=== PATIENT | male | born 1930 | race Caucasian/White ===

== ENCOUNTER 2019-08-22 09:57 | Inpatient (IN) ==
[2019-08-22] MEDS ORDERED: NS 1,000 ML IV ONE ×2 (10:24→13:26)
[2019-08-22] MEDS ORDERED: ZOFRAN IV ONE (10:26)
--- NOTE | 2019-08-22 10:42 | PROVIDER DOCUMENTATION ---
HPI-General Adult - General Chief Complaint: Syncope Stated Complaint: SYNCOPE Time Seen by Provider: 08/22/19 09:58 Source: patient, family Allergies/Adverse Reactions: Patient Allergies Allergy/AdvReac Type Severity Reaction Status Date / Time No Known Allergies Allergy Verified 06/29/19 11:55 Home Medications: Home Medication List Medication Instructions Recorded Confirmed Last Taken Type Allopurinol 100 mg PO QAM 06/29/19 08/22/19 07/03/19 08:00 History Cholecalciferol (Vitamin D3) 1 dose PO QHS 06/29/19 07/04/19 07/03/19 21:00 History [Vitamin D3] Cyanocobalamin (Vitamin B-12) 1,000 mcg PO QAM 06/29/19 08/22/19 07/03/19 08:00 History [B-12] Furosemide 40 mg PO QAM 06/29/19 08/22/19 07/03/19 08:00 History Lisinopril 5 mg PO QHS 06/29/19 08/22/19 07/03/19 21:00 History Pantoprazole [Protonix] 40 mg PO QAM 06/29/19 08/22/19 07/03/19 08:00 History Pravastatin Sodium 20 mg PO QHS 06/29/19 08/22/19 07/03/19 21:00 History Ranitidine HCl 300 mg PO QHS 06/29/19 08/22/19 07/03/19 21:00 History Spironolactone 25 mg PO QAM 06/29/19 07/04/19 07/03/19 08:00 History Sucralfate 1 gm PO BID 06/29/19 07/04/19 07/03/19 21:00 History Warfarin [Coumadin] 1 dose PO DIRECTED 06/29/19 07/04/19 Unknown History - History of Present Illness -Gen Adult Nature of Presenting Problems: Presents to the with family who states that he was coming over to have some blood work drawn and while he was over there he ended up getting very dizzy and almost passing out in the wheelchair. He did not fall and was sitting in the wheelchair throughout this episode. They states that last Thursday he was started on a new chemo injection by Dr Carpenter. On Thu he started feeling very weak. They deny any pain and fevers but state that he just appeared very pale and weak. He has required multiple transfusions and last time he was checked was a few eeks ago and he was in the 8s. They gave him an injection "that was supposed to replace the need for a transfusion". Patient appears weak and has little communication and most history was obtained by family. Review of Systems - Adult - REVIEW OF SYSTEMS - ADULT Constitutional: reports: see HPI Eyes: reports: no symptoms reported Ears, Nose, Mouth & Throat: reports: no symptoms reported Cardiovascular: reports: no symptoms reported Respiratory: reports: no symptoms reported Gastrointestinal: reports: no symptoms reported Genitourinary: reports: no symptoms reported Musculoskeletal: reports: no symptoms reported Integumentary: reports: no symptoms reported Neurological: reports: see HPI, syncope Psychiatric: reports: no symptoms reported Endocrine: reports: no symptoms reported Hematologic/Lymphatic: reports: see HPI, low blood count, transfusions Allergic/Immunologic: reports: no symptoms reported All Other Systems: Reviewed and Negative Past History - Adult - PAST MEDICAL HISTORY-ADULT Review of Records: reports: Old Records Reviewed Physical Exam-General - CONSTITUTIONAL General Appearance: alert, lethargic, other (appears weak) - EYES Eyes: PERRL/EOMI, pale conjunctivae - HEAD, EARS, NOSE, MOUTH & THROAT HENMT: normocephalic/atraumatic - NECK Neck: supple, normal inspection - RESPIRATORY Respiratory: chest non-tender, lungs clear, normal breath sounds, no respiratory distress, no accessory muscle use - CARDIOVASCULAR Cardiovascular: normal peripheral pulses, no murmur, tachycardia, irregularly irregular - GASTROINTESTINAL (ABDOMEN) Abdominal Exam: normal bowel sounds, non tender, soft - MUSCULOSKELETAL Back Exam: normal inspection Extremity: normal range of motion, no pedal edema - SKIN Integumentary: warm/dry, pallor - NEUROLOGIC Neurologic: grossly normal - PSYCHIATRIC Psych/Mental Status: normal mood/affect, oriented x 3 Progress - PLAN OF CARE/RESULTS Progress/Plan/Lab Results: Vital Signs - 8 hr 08/22/19 10:05 Temperature 97.4 F L Pulse Rate 106 H Respiratory Rate 24 Blood Pressure 101/59 O2 Sat by Pulse Oximetry 97 Laboratory Results - last 24 hr 08/22/19 10:25 POC Glucose 147 H Orders Category Date Time Status ED: Orthostatic Vital Signs (E DIRECTED Care 08/22/19 10:25 Active CHEST-PORTABLE [RAD] Stat Exams 08/22/19 10:[address] HEAD W/O CONTRAST [CT] Stat Exams 08/22/19 10:24 Ordered BLOOD CULTURE [BLDCUL] Stat Lab 08/22/19 10:24 Uncollected CBC WITH ELECTRONIC DIFF [HEME] Stat Lab 08/22/19 10:23 Uncollected COMPREHENSIVE METABOLIC PANEL [CHEM] Stat Lab 08/22/19 10:24 Uncollected LACTATE, PLASMA [CHEM] Stat Lab 08/22/19 10:24 Uncollected LIPASE [CHEM] Stat Lab 08/22/19 10:24 Uncollected PRO B-NATRIURETIC PEPTIDE Stat Lab 08/22/19 10:24 Uncollected PROTIME WITH INR [COAG] Stat Lab 08/22/19 10:24 Uncollected PTT [COAG] Stat Lab 08/22/19 10:24 Uncollected TROPONIN T Stat Lab 08/22/19 10:24 Uncollected TYPE & SCREEN [BBK] Stat Lab 08/22/19 10:24 Uncollected URINALYSIS W/POSS RFLX CULT [URINALYSIS] Stat Lab 08/22/19 10:24 Uncollected URINE DRUG SCREEN Stat Lab 08/22/19 10:24 Uncollected 0.9% Sodium Chloride Inj [Ns] 1,000 ml Med 08/22/19 10:24 Active IV 999 mls/hr Ondansetron [Zofran] Med 08/22/19 10:26 Discontinued 4 mg IV NOW ONE Patient spiked temp while in the ED. Unknown source. CXR negative, UA negative, flu negative. LA normal. Pancytopenic. Ordered PRBCs and platelets. Given 2L NS prior to transfusion to help with pressures. Patient started on Neutropenic fever precautions and started on Vanc and Cefepime. Cultures ordered. Spoke to HERBERTH Vogel for hospitalist who accepted patient for admission. Further orders to be placed by their team. Result Diagrams: 08/22/19 11:05 08/22/19 11:05 - EKG 1 Time of EKG reading by physician:: 10:15 EKG Read and Signed by:: Mónica Mcdonough EKG Interpretation (*Must complete 3 of following elements*): Abnormal Rate: 111 Rhythm: Afib Rewey: normal ST Wave: non-specific ST changes - XRAY 1 XRAY Study: Chest (EXAM: CHEST-PORTABLE INDICATION: near syncope, weakness, cancer pt TECHNIQUE: One view COMPARISON: None. FINDINGS: There is a right chest port with the tip projecting over the lower SVC in the expected position. The lungs are grossly clear. There is no discrete pleural fluid collection or pneumothorax. A pacemaker/defibrillator is in place. The cardiac silhouette is perhaps mildly prominent. Central vasculature is unremarkable. IMPRESSION: Mildly prominent cardiac silhouette. No definite acute pathology by plain rad iograph, otherwise. Electronically signed by Johan Waggoner 08/22/2019 10:47 AM) - CT/MRI 1 CT Study: Head (CT HEAD W/O CONTRAST - 08/22/2019 INDICATION: near syncope COMPARISON: None FINDINGS: There is advanced, patchy cerebral white matter lucency diffusely compatible with chronic microvascular ischemia. There are old lacunae in the right basal ganglia. No intracranial mass or hemorrhage. The skull is intact. The sinuses, mastoids, and middle ears are clear. IMPRESSION: Advanced chronic microvascular ischemia of the cerebral white matter. No acute process visible. This exam was performed using automated exposure control, adj ustment of mA or kV according to patient size, and/or use of iterative reconstruction technique Electronically signed by William Fulton 08/22/2019 12:53 PM) - CONSULTS/PCP/HOSPITALIST Notification #1 *Consult/PCP/Hospitalist*: HERBERTH Vogel salesperson fashion accessories for hospitalist Time Discussed: 15:36 Consult Disposition: Admit (Dr Hendricks) Departure - Departure Date of Disposition Decision: 08/22/19 Time of Disposition Decision: 15:35 DIAGNOSIS: Pancytopenia, Neutropenic fever, Near syncope, Hypotension Disposition: ADMITTED INPATIENT 09 Certified Medical Emergency: Emergent Condition: Critical - Critical Care Note This patient required my direct & personal management of CC.: Yes Total Time (mins): 75 Critical Care Statement: This patient required my direct personal management to treat or rule out processes, the absence of which, could potentiallly result in sudden, clinically significant life or limb threatening deterioration. Attestation - Physician/ BELLO Attestation Patient care was provided by Advanced Practice Provider:: No The physician spent face to face time with patient:: Yes Advanced Practice Provider documentation review:: Supervising physician onsite and consulted in the evaluation and care of this patient. The physician did have a face to face encounter with the patient. Sepsis: Tissue Perfusion Assmt - Physical Exam Assessment Date: 08/22/19 Time Assessment Initialized: 15:35 Vital Signs: Last Vital Signs Temp 101.6 F H 08/22/19 14:28 Pulse 99 H 08/22/19 14:31 Resp 27 H 08/22/19 14:31 BP 114/53 08/22/19 14:31 Pulse Ox 96 08/22/19 14:31 Height 5 ft 8 in Weight 63.503 kg Lung Sounds:: diminished Heart Sounds:: Irregular Capillary Refill Time: Less Than 2 Seconds Skin Exam:: pale, pallor, turgor absent - Impression Impression:: Tissue Perfusion Adequate
--- NOTE | 2019-08-22 10:49 | Diag Imaging Result Doc PS360 ---
EXAM: CHEST-PORTABLE INDICATION: near syncope, weakness, cancer pt TECHNIQUE: One view COMPARISON: None. FINDINGS: There is a right chest port with the tip projecting over the lower SVC in the expected position. The lungs are grossly clear. There is no discrete pleural fluid collection or pneumothorax. A pacemaker/defibrillator is in place. The cardiac silhouette is perhaps mildly prominent. Central vasculature is unremarkable. IMPRESSION: Mildly prominent cardiac silhouette. No definite acute pathology by plain radiograph, otherwise. Electronically signed by Johan Waggoner 08/22/2019 10:47 AM
[2019-08-22 11:43] LABS: INR 1.39; PROTIME 17.3 Seconds (11.0-16.0)
[2019-08-22 11:44] LABS: PTT 38.2 Seconds (22.3-41.8)
[2019-08-22 12:10] LABS: BASO# 0.01 X1000 (0.0-0.2); BASO% 2.7 % (0.0-0.8); EOS# 0.05 X1000 (0.0-0.7); EOS% 13.5 % (0.0-10.0); HEMATOCRIT 17.5 % (42.0-52.0); HEMOGLOBIN 5.3 g/dL (14.0-18.0); LYMPH# 0.25 X1000 (1.2-3.4); LYMPH% 67.6 % (20.5-51.1); MCH 29.1 PG (27-31); MCHC 30.3 g/dL (33-37); MCV 96.2 FL (81-99); MONO# 0.02 X1000 (0.11-0.59); MONO% 5.4 % (1.7-9.3); NEUT# 0.04 X1000 (1.4-6.5); NEUT% 10.8 % (42.2-75.2); PLT 9 X1000 (130-400); RBC 1.82 XMIL (4.7-6.1); RDW 20.4 % (11.5-14.5); WBC 0.37 X1000 (4.8-10.8)
[2019-08-22 12:47] LABS: ALB/GLOB RATIO 1.6; ALBUMIN 3.6 g/dL (3.5-5.0); CALCIUM 8.7 mg/dL (8.8-10.2); CREATININE 2.2 mg/dL (0.7-1.2); POTASSIUM 4.5 mmol/L (3.5-5.1); TOTAL BILIRUBIN 1.6 mg/dL (0.20-1.00); TOTAL PROTEIN 5.9 g/dL (6.3-8.3)
--- NOTE | 2019-08-22 12:55 | EKG Report ---
Test Performed on : 08/22/2019 10:14:16 AM Test Reason : SYNCOPE Blood Pressure : / mmHG Vent. Rate : 111 BPM Atrial Rate : 111 BPM P-R Int : 000 ms QRS Dur : 088 ms QT Int : 308 ms P-R-T Axes : 000 004 199 degrees QTc Int : 418 ms Atrial fibrillation. with rapid ventricular response. Possible Inferior infarct , age undetermined ST & T wave abnormality, consider lateral ischemia Abnormal ECG No previous ECGs available Unconfirmed Result
--- NOTE | 2019-08-22 12:56 | Diag Imaging Result Doc PS360 ---
CT HEAD W/O CONTRAST - 08/22/2019 INDICATION: near syncope COMPARISON: None FINDINGS: There is advanced, patchy cerebral white matter lucency diffusely compatible with chronic microvascular ischemia. There are old lacunae in the right basal ganglia. No intracranial mass or hemorrhage. The skull is intact. The sinuses, mastoids, and middle ears are clear. IMPRESSION: Advanced chronic microvascular ischemia of the cerebral white matter. No acute process visible. This exam was performed using automated exposure control, adjustment of mA or kV according to patient size, and/or use of iterative reconstruction technique Electronically signed by William Fulton 08/22/2019 12:53 PM
[2019-08-22 13:02] LABS: LYMPHS 65 % (21-51); SEGS 35 % (42-75)
[2019-08-22 13:03] LABS: ANISOCYTOSIS 2+; HYPOCHROM 2+; MICROCYTOSIS 2+
[2019-08-22 13:04] LABS: URINE SOURCE CLEAN CATCH
[2019-08-22 13:08] LABS: BILIRUBIN URINE NEGATIVE (NEGATIVE); BLOOD URINE NEGATIVE (NEGATIVE); COLOR STRAW; GLUCOSE URINE NEGATIVE (NEGATIVE); KETONE URINE NEGATIVE (NEGATIVE); LEUKOCYTES URINE NEGATIVE (NEGATIVE); NITRITE URINE NEGATIVE (NEGATIVE); PROTEIN URINE NEGATIVE (NEGATIVE); SP GRAVITY URINE 1.009; TURBIDITY URINE CLEAR (CLEAR); UROBILINOGEN URINE NORMAL (NORMAL)
[2019-08-22 13:10] LABS: UR EPITHELIAL CELLS <10 /HPF (<10); URINE BACTERIA NEGATIVE /HPF; URINE RBC <10 /HPF (<10); URINE WBC <10 /HPF (<10)
[2019-08-22 13:25] LABS: UR AMPHETAMINES QUAL NONE DETECTED (NONE DETECT); UR BARBITUATES QUAL NONE DETECTED (NONE DETECT); UR BENZODIAZEPIN QUAL NONE DETECTED (NONE DETECT); UR CANNABINOIDS QUAL NONE DETECTED (NONE DETECT); UR COCAINE QUAL NONE DETECTED (NONE DETECT); UR METHADONE QUAL NONE DETECTED (NONE DETECT); UR OPIATES QUAL NONE DETECTED (NONE DETECT); UR OXYCODONE QUAL NONE DETECTED (NONE DETECT); UR PCP QUAL NONE DETECTED (NONE DETECT)
[2019-08-22] MEDS ORDERED: VANCOMYCIN 1 GM/NS 1 GM/250 ML IVPB IV ONE (14:16)
[2019-08-22] MEDS ORDERED: TYLENOL PO ONE (14:16)
[2019-08-22] MEDS ORDERED: MAXIPIME 2 GM/NS 2 GM/100 ML IVPB IV ONE (14:16)
[2019-08-22] MEDS ORDERED: NS 1,000 ML ONE (17:11)
--- NOTE | 2019-08-22 18:10 | HISTORY AND PHYSICAL ---
PRIMARY CARE PHYSICIAN: Jennifer Rueda. ONCOLOGIST: Dr. Carpenter. CHIEF COMPLAINT: Generalized weakness, came to have labs today and almost passed out. HISTORY OF PRESENTING ILLNESS: This is an 89-year-old male who presented to [facility] after he was seen at his oncologist's office today and had some labs drawn and while having labs he almost passed out. He was very pale in color so he was sent to the emergency room for evaluation. 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 His workup showed a white blood cell count of 0.37, hemoglobin 5.3, hematocrit 17.5, platelets of 9000, a BUN of 69 with a creatinine of 2.2. Urinalysis was negative. Chest x-ray showed a mildly prominent cardiac silhouette but no definite acute pathology otherwise and a CT of the head that showed advanced chronic microvascular ischemia of the cerebral white matter but no acute process visible. He was noted to have some hypotension that got as low as 76/57. He was given 2 normal saline boluses in the emergency room, vancomycin 1 g IV, cefepime 2 g IV and he will be admitted to the intensive care unit, placed on neutropenic precautions and will be treated further. PAST MEDICAL HISTORY: Of hypertension, GERD, hyperlipidemia, myelodysplastic syndrome, atrial fibrillation. PAST SURGICAL HISTORY: Of a defibrillator placement, an aortic aneurysm repair in 2009 and a subclavian central venous line placement. FAMILY HISTORY: Reviewed and noncontributory. SOCIAL HISTORY: Currently lives with family. Denies any tobacco, alcohol or illicit drug use. ALLERGIES: He has no known drug allergies. HOME MEDICATIONS: A current list will need to be obtained, reconciled, reviewed and restarted as appropriate, will place an order for nursing to update and confirm home medications. LABORATORY DATA: Showed a white blood cell count of 0.37, hemoglobin 5.3, hematocrit 17.5, platelets 9000, PT and INR of 17.3 and 1.39. Sodium 139, potassium 4.5, chloride 101, CO2 23, BUN of 69, creatinine 2.2, glucose of 136, total bilirubin of 1.6. Cardiac enzyme was negative. ProBNP was 2659. Plasma lactate of 1.9. Urinalysis was negative. Urine drug screen showed none detected. Chest x-ray showed no definite acute pathology by plain radiograph but did have a mildly prominent cardiac silhouette. Head CT showed advanced chronic microvascular ischemia of the cerebral white matter but no acute process visible. EKG showed atrial fibrillation with RVR at 111. He is currently rate controlled at 77. REVIEW OF SYSTEMS: Denied any fever, chills, blurred vision. He did have some dizziness, weakness and some mild shortness of breath. Denied any cough, abdominal pain, constipation, diarrhea, burning or hurting with urination. PHYSICAL EXAMINATION: On arrival he had a temperature of 97.4 degrees, pulse 106, respirations 24, blood pressure 101/59, saturating 97% on room air. His temperature went up to 101.8, blood pressure got as low as 76/57. GENERAL: This is a 89-year-old male who is thin, frail and pale in appearance. HEENT: Normocephalic, atraumatic. Normal ENT inspection. Oropharynx and nares are clear. Pupils are equal, round, reactive to light, accommodation. Extraocular movements are intact. NECK: Normal inspection, normal range of motion. LUNGS: Clear to auscultation bilaterally with equal lung expansion and chest wall movement. HEART: With irregular rate and rhythm but no murmurs, rubs, or gallops. ABDOMEN: Soft, nontender, nondistended. Bowel sounds are present x4 quadrants. MUSCULOSKELETAL: He had 3/5 strength x4 extremities. NEUROLOGICAL: The cranial nerves 2-12 appear grossly intact. ASSESSMENT: 1. Sepsis. 2. Pancytopenia. 3. Anemia. 4. An acute kidney injury. 5. Hypotension. 6. Atrial fibrillation history of. OUR PLAN: He will be admitted to the intensive care unit, placed on telemetry, O2 per protocol, regular diet, will place on Zosyn 3.375 g IV q.6, vanc per pharmacy protocol, normal saline at 125 mL an hour, place on neutropenic isolation. He will have 2 units of packed red blood cells transfused and 1 unit of platelets. Will recheck a CBC, BMP in the a.m. We will consult Oncology and further orders after seen by attending and information services consultant. Dictated by RORY Temple for Fletcher Hendricks MD cc: MD Fletcher Melendez MD
[2019-08-22] MEDS ORDERED: VANCOMYCIN IV PER PHARMACY MISC SCH (18:57)
[2019-08-22] MEDS ORDERED: PROTONIX IV ONE (18:57)
[2019-08-22] MEDS ORDERED: ZOFRAN IV PRN (18:57)
[2019-08-22] MEDS ORDERED: SODIUM CHLORIDE 0.9% INJ ONE (18:57)
[2019-08-22] MEDS: ZOSYN 3.375 GM in NS 50 ML IV SCH (20:22)
[2019-08-22] MEDS: NS 1,000 ML IV SCH (20:22)
[2019-08-22 21:04] LABS: HEMATOCRIT 21.4 % (42.0-52.0); HEMOGLOBIN 6.7 g/dL (14.0-18.0)
--- NOTE | 2019-08-22 22:24 | HISTORY AND PHYSICAL ---
ADDENDUM: I have seen and examined Mr. Lundberg today in the emergency room. The and the son were both at the bedside at the time of the encounter. Mr. Lundberg is an 89-year-old male who has recently been diagnosed with MDS on a bone marrow biopsy and just started with chemotherapy about [address] Carpenter. Mr. Lundberg refers that for the past 5 days he has been progressively getting weaker and weaker, associated with some chills, but he does not remember having any fever, no cough, went to Dr. Carpenter's office for a regular followup and apparently seems to have felt so weak that they thought he blacked out and was brought to the emergency room. In the emergency room, his initial vitals showed that his temperature was 97.4 degrees. His pulse was 106, respirations 24, blood pressure was 101/59; however, during the hospital course, he seems to have spiked a temperature 101.8 degrees. I am told that this also coincided at the time blood transfusion was initiated. PHYSICAL EXAMINATION: GENERAL: He looks remarkably pale. He is under the sheet. CHEST: Clear. Mild crackles in the posterior lung aguirre. ABDOMEN: Soft. I did not see any obvious physical finding of infection. IMAGING STUDIES: A chest x-ray did show prominent cardiac silhouette. No definite acute pathology. His CT scan of the head show advanced chronic microvascular ischemic changes. No acute process. LABORATORY DATA: Showed WBC of 0.39, hemoglobin of 5.3, platelet count of 9000. Segments are just 35 with lymphocytes of 64. His creatinine is elevated to 2.3. ProB is 2659. ASSESSMENT: 1. Generalized weakness secondary to severe pancytopenia. 2. Pancytopenia secondary to chemotherapy side effects. 3. Severe neutropenia with possible neutropenic fever. Blood cultures have been done. Patient had been started on broad-spectrum IV antibiotics. 4. History of congestive heart failure, questionable in mild exacerbation. ProB is elevated. 5. Renal failure, presumably chronic versus acute on chronic. We will continue to monitor this. 6. Recently diagnosed myelodysplastic syndrome. Patient had just started chemotherapy about 2 weeks ago, 1 of 6 sessions to get. So in general, Mr. Lundberg is extremely sick, neutropenic fever. He is very pancytopenic. He is going to be supported with blood products including PRBCs and platelets. He is on antibiotics for infection. Blood cultures have been done. We will also culture the urine. The urine seems remarkably clean. We will follow up on the blood culture to make changes to the antimicrobial coverage as needed. Please refer to the details of the history and physical, which has been dictated by the ROBOTICS SOFTWARE ENGINEER in the chart. Plans have been discussed with her. Mr. Lundberg, oncologist, is Dr. Carpenter, and we will consult her accordingly. cc: Fletcher Hendricks MD
[2019-08-23] MEDS: ZOSYN 3.375 GM in NS 50 ML IV SCH ×4 (01:57→20:06)
[2019-08-23] MEDS: TYLENOL PO PRN ×2 (03:42→16:44)
[2019-08-23] MEDS: NS 1,000 ML IV SCH ×2 (06:15→15:30)
[2019-08-23 08:00] LABS: BASO# 0.01 X1000 (0.0-0.2); HEMATOCRIT 25.8 % (42.0-52.0); HEMOGLOBIN 8.4 g/dL (14.0-18.0); LYMPH# 0.39 X1000 (1.2-3.4); MCH 29.8 PG (27-31); MCHC 32.6 g/dL (33-37); MCV 91.5 FL (81-99); MONO# 0.02 X1000 (0.11-0.59); MPV 8.3 FL (7.4-10.4); PLT 48 X1000 (130-400); RBC 2.82 XMIL (4.7-6.1); RDW 16.8 % (11.5-14.5)
[2019-08-23 08:15] LABS: INR 1.42; PROTIME 17.6 Seconds (11.0-16.0)
[2019-08-23 08:58] LABS: CALCIUM 8.5 mg/dL (8.8-10.2); CREATININE 1.7 mg/dL (0.7-1.2)
[2019-08-23] MEDS: GRANIX SUBQ SCH (16:45)
--- NOTE | 2019-08-23 17:43 | PROGRESS NOTE ---
DATE: 08/23/2019 Mr. Lundberg says he is feeling better. His T-max was 100.3 degrees, pulse 99, respirations 35, blood pressure 96/72. Pupils are equal and round. Lungs are clear in all lung aguirre. Cardiovascular regular rate without murmur or S3. Urine output is 2200 mL. LABS: His blood counts from this morning white count was 500, hematocrit was 25, hemoglobin 8.4, platelet count was 48,000 so white count has come up nicely. ASSESSMENT AND PLAN: Presented with sepsis, pancytopenia, anemia and acute kidney injury thought mainly prerenal, some hypotension. He has history of atrial fibrillation, rate has been controlled. He is on Zosyn 3.375 g intravenous q.6 hours and vancomycin per pharmacy. He is in neutropenic isolation. He did get 2 units packed red blood cells, 1 unit platelets, count seemed to be improving and p.o. intake seems to be good. Looking over his orders, he is getting normal saline 125 mL an hour, Protonix 40 mg IV q.24 hours, got Granix 480 mcg subcu daily, getting vancomycin 1 g IV q.48 hours, Zosyn 3.375 g IV q.6 and cefepime 2 g IV he got 1 dose of that when he came in. cc: Jose C Bates MD
[2019-08-23] MEDS: PROTONIX IV SCH (20:06)
--- NOTE | 2019-08-23 22:59 | HEMO/ONC CONSULTATION ---
DATE: 08/23/2019 REQUESTING SERVICE: Hospitalist service. REASON FOR CONSULTATION: Patient known. HISTORY OF PRESENT ILLNESS: Mr. Lundberg is an 89-year-old male who is known to us as we are currently treating him for MDS. He is status post his first treatment cycle of Dacogen, which he completed on 08/12/2019. He was in our office on Thursday08/22/2019 in order to receive lab check and was found to be extremely pale. He actually had an episode of loss of consciousness in the lab while getting his blood drawn. He also had an episode of vomiting. His family members that were with him have reported that he has been having issues of feeling ill for the last couple of days. We advised them to transfer over to the emergency department. He was evaluated and has now been admitted, and he is in the ICU. He has sepsis, and he also had extremely low counts upon admission. He has now received both packed red blood cells and platelets with improvement of his counts. He is doing quite a bit better at this time. He is awake and coherent and has no acute complaints currently. PAST MEDICAL HISTORY: Positive for: 1. Hyperlipidemia. 2. Hypertension. 3. Abdominal aortic aneurysm. 4. Kidney stones. 5. MDS currently receiving Dacogen status post cycle #1 completed 08/12/2019. PAST SURGICAL HISTORY: Positive for: 1. Defibrillator placement. 2. Aortic aneurysm repair. 3. Port placement. FAMILY HISTORY: Positive for heart disease, dementia and negative for any reported history of cancer. SOCIAL HISTORY: He is . His spouse is in the room at this time. He lives with her treasury assistant. They have 2 children. He denies any alcohol, tobacco, or illicit drug use. REVIEW OF SYSTEMS: Twelve-point review of systems has been completed and is negative except for expressed in HPI. PHYSICAL EXAMINATION: Vital Signs: Temperature 99.3, heart rate 86, respirations 22, blood pressure 122/80, O2 saturation 98% on room air. General: This is a male, elderly who is sitting up in his hospital bed. He is awake and alert and is in no acute distress. His daughter and are at bedside. HEENT: Head normocephalic, atraumatic. Eyes: Pupils equal, round and reactive to light. Sclerae are anicteric. Mouth: Oral mucosa appears to be normal. Gross auditory acuity is intact. Cardiovascular: S1, S2 heard. Respiratory: Essentially clear to auscultation bilaterally anteriorly. No rhonchi, rales or wheezing noted. Gastrointestinal: Abdomen is soft. Musculoskeletal: No bony abnormalities. Skin: No obvious rashes noted. Neurologic: Again he is alert and oriented and awake. LABORATORY AND STUDIES: White blood cells are 0.50 today, hemoglobin 8.4, platelet count 48,000, neutrophil count at last check was 0.04, sodium 142, potassium 4.0, chloride 106, CO2 21, BUN 49, creatinine 1.7, glucose 122. ASSESSMENT AND PLAN: 1. Myelodysplastic syndrome status post cycle 1 of Dacogen. Treatment is on hold currently. He is also not due for it for a couple more weeks. Monitor his counts closely and provide supportive care. 2. Pancytopenia secondary to myelodysplastic syndrome as well as his Dacogen treatment. He has already received 4 units of packed red blood cells and 1 unit of platelets. Continue to monitor his counts and provide transfusions as needed. Continue neutropenic precautions at this time as well. 3. Sepsis. Seems to be improving. Continue current management per the primary team. 4. Acute renal failure. Patient's creatinine is already better at 1.7 today. Continue close monitoring and current management. I want to thank you for consulting us on Mr. Lundberg. We will continue to follow and adjust our treatment plan per his hospital course. Dictated by CURT Christopher for Tameka Carpenter MD cc: Tameka Carpenter MD I have seen and examined the patient. The above note reflects my history, physical examination, assessment and plan. Tameka Carpenter MD [facility]ITAL[facility]ante
[2019-08-24] MEDS: NS 1,000 ML IV SCH ×3 (02:05→16:46)
[2019-08-24] MEDS: ZOSYN 3.375 GM in NS 50 ML IV SCH ×4 (02:07→20:11)
[2019-08-24 06:27] LABS: EOS# 0.06 X1000 (0.0-0.7); EOS% 7.4 % (0.0-10.0); HEMATOCRIT 27.4 % (42.0-52.0); LYMPH# 0.71 X1000 (1.2-3.4); LYMPH% 87.7 % (20.5-51.1); MCH 30.2 PG (27-31); MCHC 32.8 g/dL (33-37); MCV 91.9 FL (81-99); NEUT% 4.9 % (42.2-75.2); RBC 2.98 XMIL (4.7-6.1); WBC 0.81 X1000 (4.8-10.8)
[2019-08-24 06:28] LABS: NEUT# 0.04 X1000 (1.4-6.5); PLT 23 X1000 (130-400)
[2019-08-24] MEDS: GRANIX SUBQ SCH (09:26)
--- NOTE | 2019-08-24 15:59 | PROGRESS NOTE ---
DATE: 08/24/2019 SUBJECTIVE: Mr. Lundberg is feeling better. His counts look better. His platelet count is still low. OBJECTIVE: Vital signs: Temperature 99.0 degrees, pulse 86, respirations 27, blood pressure 107/61. HEENT: Pupils are equal and round. Lungs: Clear in all lung aguirre. Cardiovascular: Regular rhythm and rate without murmur or S3. Urine output was 3000 mL. He is eating well. ASSESSMENT AND PLAN: 1. Myelodysplastic syndrome, status post cycle 1 of Dacogen. Holding treatment currently. 2. Pancytopenia secondary to myelodysplastic syndrome, as well as his Dacogen treatment. He has already received 4 units of packed red blood cells and 1 unit of platelets. Continue to monitor. See what his platelet count is tomorrow. If it still 20 or below, give him another unit of platelets. 3. Sepsis when he presented. This is better. Continue present antibiotics. 4. Acute renal failure. Creatinine is down to 7; that is improved. REVIEW OF ORDERS: I do not see any change. He is on vancomycin 1 g IV q.48, Zosyn 3.375 g IV q.6, and Protonix 40 mg IV q.24 hours. cc: Jose C Bates MD
[2019-08-24] MEDS ORDERED: VANCOMYCIN 1 GM/NS 1 GM/250 ML IVPB IV SCH (17:00)
[2019-08-24] MEDS: SODIUM CHLORIDE 0.9% INJ SCH (20:11)
[2019-08-24] MEDS: PROTONIX IV SCH (20:11)
--- NOTE | 2019-08-24 21:22 | HEMO/ONC PROGRESS NOTE ---
DATE: 08/24/2019 SUBJECTIVE: Mr. Lundberg is lying in his hospital bed. He is in no acute distress. His is in the room with him. VITAL SIGNS: Temperature 99.0 degrees, heart rate 86, respirations 27, blood pressure 107/61, O2 saturation 96% on room air. LABORATORY: White blood cells today are 0.81, hemoglobin 9.0, platelet count 23,000, absolute neutrophil count is 0.04. PHYSICAL EXAMINATION: Cardiovascular: S1 and S2 heard. Respiratory: Chest is clear. Gastrointestinal: Abdomen is soft. Musculoskeletal: No obvious bony abnormalities. Extremities: Some trace edema only. ASSESSMENT AND PLAN: 1. Myelodysplastic syndrome. Patient is status post first cycle of Dacogen. Holding treatment until the patient recovers from his acute illness. We will follow up with him as an outpatient to discuss options for further treatment at that time. 2. Sepsis. Seems to be improving. Continue management per the primary team. 3. Pancytopenia secondary to both his treatment and underlying disease. Continue daily Granix. White count seems to be slowly improving. Continue to provide platelet transfusions and blood transfusions as needed. 4. Acute renal failure. Again, his creatinine has improved to 1.7. Continue to monitor per the primary team. Dictated by CURT Christopher for Tameka Carpenter MD cc: Tameka Carpenter MD I have seen and examined the patient and the above note reflects my history, physical exam, assessment and plan. Tameka FLOYD
[2019-08-25] MEDS: ZOSYN 3.375 GM in NS 50 ML IV SCH ×4 (01:10→19:34)
[2019-08-25] MEDS: NS 1,000 ML IV SCH ×3 (01:10→14:55)
[2019-08-25] MEDS ORDERED: VANCOMYCIN 1 GM/NS 1 GM/250 ML IVPB IV SCH (05:00)
[2019-08-25 06:36] LABS: EOS# 0.02 X1000 (0.0-0.7); EOS% 3.9 % (0.0-10.0); HEMOGLOBIN 7.6 g/dL (14.0-18.0); LYMPH# 0.45 X1000 (1.2-3.4); LYMPH% 88.2 % (20.5-51.1); MCH 29.6 PG (27-31); MCHC 31.7 g/dL (33-37); MCV 93.4 FL (81-99); MONO# 0.01 X1000 (0.11-0.59); MPV 10.8 FL (7.4-10.4); NEUT% 5.9 % (42.2-75.2); RBC 2.57 XMIL (4.7-6.1); RDW 16.9 % (11.5-14.5); WBC 0.51 X1000 (4.8-10.8)
[2019-08-25 07:29] LABS: PLT 9 X1000 (130-400)
[2019-08-25 07:30] LABS: NEUT# 0.03 X1000 (1.4-6.5)
[2019-08-25] MEDS: GRANIX SUBQ SCH (09:24)
[2019-08-25] MEDS ORDERED: BENADRYL IV ONE (14:02)
[2019-08-25] MEDS: DUONEB (A & A) INH PRN (14:25)
[2019-08-25] MEDS ORDERED: CARDIZEM PO ONE (14:27)
[2019-08-25] MEDS: TYLENOL PO PRN (14:29)
[2019-08-25] MEDS ORDERED: LASIX IV ONE (14:29)
--- NOTE | 2019-08-25 17:20 | PROGRESS NOTE ---
DATE: 08/25/2019 SUBJECTIVE: Mr. Lundberg has had a pretty uneventful night. He is feeling okay. His blood counts, his hemoglobin down to 7. His platelet count was down to 9000. PHYSICAL EXAMINATION: Vital Signs: Temperature 99.9 degrees, pulse 120, respirations 42, blood pressure 116/90. Pupils are equal and round. Lungs: Clear in all lung aguirre. Cardiovascular: Regular rhythm and rate without murmur or S3. Input and Output: Urine output was 2200 mL. No petechiae or ecchymosis. ASSESSMENT AND PLAN: 1. Myelodysplastic syndrome, status post first cycle of Dacogen. Holding treatment until patient recovers from acute illness. He has pancytopenia. 2. Presented with sepsis infection. Continue present antibiotics. 3. Pancytopenia secondary to both treatment and underlying disease. Continue daily Granix. 4. Acute renal failure. Creatinine is at 1.7 on the . We will check that again tomorrow. 5. Blood counts were white blood cell count 510, hematocrit 24, hemoglobin 7.6, platelet count 9000. Sodium 142, potassium 4, chloride 106, BUN 49, creatinine 1.7, so I am going to give him 1 unit of pheresis platelets and 1 unit of packed red blood cells was the plan. 6. Note they had called me back later in the afternoon short of breath. We will decrease the fluids and give 1 dose of IV Lasix. We will put him on some Cardizem 30 mg by mouth every 6 hours and see if it will help with the heart rate. Blood pressures have looked pretty good. Still have him on antibiotics, vancomycin, and he is on vancomycin and Zosyn. cc: Jose C Bates MD
[2019-08-25] MEDS: SODIUM CHLORIDE 0.9% INJ SCH (19:34)
[2019-08-25] MEDS: CARDIZEM PO SCH (19:34)
[2019-08-25] MEDS: PROTONIX IV SCH (19:34)
[2019-08-26] MEDS: ZOSYN 3.375 GM in NS 50 ML IV SCH ×4 (02:15→21:00)
[2019-08-26] MEDS: CARDIZEM PO SCH ×4 (02:15→21:00)
[2019-08-26 06:14] LABS: BASO# 0.01 X1000 (0.0-0.2); BASO% 2.1 % (0.0-0.8); EOS# 0.04 X1000 (0.0-0.7); EOS% 8.3 % (0.0-10.0); HEMATOCRIT 26.1 % (42.0-52.0); HEMOGLOBIN 8.2 g/dL (14.0-18.0); LYMPH# 0.42 X1000 (1.2-3.4); LYMPH% 87.5 % (20.5-51.1); MCH 28.9 PG (27-31); MCHC 31.4 g/dL (33-37); MCV 91.9 FL (81-99); MPV 9.7 FL (7.4-10.4); NEUT% 2.1 % (42.2-75.2); RBC 2.84 XMIL (4.7-6.1); RDW 17.1 % (11.5-14.5); WBC 0.48 X1000 (4.8-10.8)
[2019-08-26 06:34] LABS: NEUT# 0.01 X1000 (1.4-6.5); PLT 27 X1000 (130-400)
[2019-08-26] MEDS: GRANIX SUBQ SCH (09:47)
[2019-08-26] MEDS: NS 1,000 ML IV SCH (14:37)
[2019-08-26 16:16] LABS: CREATININE 1.3 mg/dL (0.7-1.2)
--- NOTE | 2019-08-26 16:45 | PROGRESS NOTE ---
DATE: 08/26/2019 SUBJECTIVE: Mr. Lundberg is actually feeling pretty good and had an uneventful night. OBJECTIVE: Vital Signs: He has remained afebrile, temperature 98.2 degrees, pulse 97, respirations 35, blood pressure 134/68. HEENT: Pupils are equal and round. Lungs: Clear in all lung aguirre. Cardiovascular: Regular rhythm and rate without murmurs. Urine Output: 3500 mL. ASSESSMENT AND PLAN: Myelodysplastic syndrome, status post first cycle of Dacogen, holding treatment until he recovers. He presented with pancytopenia and concern about infection. Continue present antibiotics. We did give him a unit of pheresis platelets yesterday and 1 unit of packed red blood cells. His counts look a little better today. We will hold off on any further transfusion. White count still around 500, hemoglobin and hematocrit remained fairly stable. Continue present therapy, and we will check his blood counts again in the morning. cc: Jose C Baets MD
[2019-08-26 16:56] LABS: RANDOM VANCOMYCIN 2.9 ug/mL (5.0-80)
[2019-08-26] MEDS: VANCOMYCIN 1 GM/NS 1 GM/250 ML IVPB IV SCH (18:14)
--- NOTE | 2019-08-26 19:22 | INFECTIOUS DISEASE PROGRESS NO ---
DATE: 08/26/2019 CONCLUSION: The patient has 1 of 2 blood cultures positive for Streptococcus. This could be a contaminant but I think it would be more likely that it is a pathogen given the fact that the patient has neutropenia and unfortunately has a lot of metal in his body. RECOMMENDATIONS: I have discontinued Zosyn and vancomycin and place the patient on Rocephin. Some of the side effects of the antibiotic including rash and diarrhea have been explained to his son who agrees with treatment. The patient is very hard of hearing. I plan to treat the patient for a total of 6 weeks because the patient has a defibrillator and metal in his arm and legs present, which could have become infected while the patient was bacteremic. After the 6-week course of Rocephin I will put the patient on a low dose of an antibiotic most likely penicillin to be taken every 12 hours on an indefinite basis in order to prevent the infection from becoming active again in case there are a few organisms left on the patient's defibrillator or metal in his arms and legs. I asked the nurse to be sure and give the patient's Rocephin through the Port-A- Cath. DISCUSSION: The information I obtained was from the son because the patient is very hard of hearing. The patient was admitted the hospital with fever. He has myelodysplastic syndrome. He did not complain of coughing or dysuria or diarrhea. The patient has 1 of 2 blood cultures positive for Streptococcus gallolyticus. He has had 1 of 2 blood cultures positive for it. The patient's CBC shows a white count of 480, hemoglobin 8.2 and platelet count 27,000. Creatinine is 1.7. GFR is 38. Drug screen was negative. Liver function studies are normal. Chest x-ray shows clear lungs. CT scan of the head shows chronic microvascular ischemic changes. PAST MEDICAL HISTORY/REVIEW OF SYSTEMS: Eyes and ears: Patient has decreased hearing but his vision seems to be good. Respiratory: The patient has not been coughing or complaining of dyspnea. Cardiac: No chest pains or palpitations. GI: No nausea, vomiting, or diarrhea. : No dysuria. Neurologic: The patient has decreased hearing, his vision is good. No seizures. PREVIOUS HOSPITALIZATIONS AND OPERATIONS: He has had placement of a right-sided Port-A-Cath, left- sided cardiac defibrillator, both of these are the chest. The patient had fractures of his left arm and leg which regarded surgery including placement of metal plates on the arm and leg. MEDICAL DISEASES: Positive for myelodysplastic syndrome and hypertension, hyperlipidemia and gastroesophageal reflux disease. INFECTIOUS DISEASE HISTORY: Negative for pneumonia and UTI. FAMILY HISTORY: Positive for hypertension and myocardial infarction. SOCIAL HISTORY: [place] He is . He does not have any pets. He does not smoke cigarettes, drink alcoholic beverages or abuse drugs. 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 ALLERGIES: Patient's chart lists no known drug allergies. MEDICATIONS TAKEN AT HOME: Include allopurinol, furosemide, lisinopril, Protonix, pravastatin, ranitidine, spironolactone, and sucralfate. PHYSICAL EXAMINATION: Vital Signs: Temperature is 98.2 degrees, pulse 97, respirations 35, blood pressure 134/68. General: This is a ill-appearing elderly male, he is in no acute distress. Head/eyes/ears/nose/throat: He has decreased hearing. He can see near objects. He does not have any white patches on his tongue. Neck: No meningismus. Lungs: Clear to auscultation. Cardiovascular: Heart rate is regular. Thorax: On the left side the patient has a defibrillator. The site is not erythematous or swollen. On the right side the patient has a Port- A-Cath and that side is not erythematous or tender. Abdomen: Soft and nontender. Neurologic: The patient is alert. He can move his extremities. He has decreased hearing. His memory regarding his medical illnesses is decreased. Integument: No rash noted. Thank you for the consult. cc: Manish Elizalde MD
--- NOTE | 2019-08-26 20:29 | HEMO/ONC PROGRESS NOTE ---
DATE: 08/26/2019 SUBJECTIVE: Mr. Lundberg is sitting in his hospital bed with several family members at bedside. He is in no acute distress. OBJECTIVE: Vital signs: Temperature 98.2 degrees, heart rate 112, respirations 16, blood pressure 134/68, O2 saturation 96% on room air. LABS AND STUDIES: White blood cells today are 0.48, hemoglobin 8.2, platelet count 27,000, ANC is 0.01. PHYSICAL EXAMINATION: CV: S1, S2 heard. Respiratory: Some coarse breath sounds. No rhonchi, rales, or wheezing noted. Gastrointestinal: Abdomen is soft. Extremities: No edema noted. ASSESSMENT: 1. Myelodysplastic syndrome, status post cycle 1 of Dacogen. Treatment is on hold currently. 2. Pancytopenia, secondary to underlying disease as well as treatment. Continue to provide transfusions as needed. Per the nurse, the patient had some issues with packed red blood cells yesterday when he received them. It seems like he may have had some fluid overload, so certainly if he needs additional packed red blood cells, consider following with intravenous Lasix. He can also be premedicated with Solu-Medrol in addition to his Benadryl and Tylenol as needed for any transfusion reactions. Judiciously transfuse. Continue Granix daily. 3. Blood cultures positive for streptococcus. We are going to go ahead and have Dr. Elizalde just come look at the patient and make sure nothing else needs to be done. We will look forward to Dr. Elizalde' recommendations. 4. Thrombocytopenia. Plan to go ahead and transfuse 1 unit of platelets as needed for a platelet count less than 10,000 or if he has significant bleeding or high fever. Would also plan to transfuse packed red blood cells for a hemoglobin of less than 8 as needed. 5. Disposition. The hope is that the patient will continue to improve. He is definitely improved clinically. His white count is slightly worse, but that will hopefully also improve. We will be available as needed over the weekend. We will resume regular followup on Thursday. Dictated by CURT Christopher for Cameron Yo MD cc: Cameron Yo MD
[2019-08-26] MEDS: PROTONIX IV SCH (21:00)
[2019-08-27] MEDS: ZOSYN 3.375 GM in NS 50 ML IV SCH ×4 (01:28→20:47)
[2019-08-27] MEDS: CARDIZEM PO SCH ×4 (01:28→20:48)
[2019-08-27 07:35] LABS: BASO# 0.01 X1000 (0.0-0.2); EOS# 0.03 X1000 (0.0-0.7); EOS% 5.9 % (0.0-10.0); HEMATOCRIT 25.8 % (42.0-52.0); HEMOGLOBIN 8.2 g/dL (14.0-18.0); LYMPH# 0.43 X1000 (1.2-3.4); LYMPH% 84.3 % (20.5-51.1); MCH 29.2 PG (27-31); MCHC 31.8 g/dL (33-37); MCV 91.8 FL (81-99); MONO# 0.02 X1000 (0.11-0.59); MONO% 3.9 % (1.7-9.3); NEUT# 0.02 X1000 (1.4-6.5); NEUT% 3.9 % (42.2-75.2); PLT 9 X1000 (130-400); RBC 2.81 XMIL (4.7-6.1); WBC 0.51 X1000 (4.8-10.8)
[2019-08-27 07:40] LABS: LYMPHS 90 % (21-51); SEGS 10 % (42-75)
[2019-08-27] MEDS: GRANIX SUBQ SCH (10:30)
[2019-08-27] MEDS ORDERED: SOLU-MEDROL IV ONE ×2 (10:33→13:45)
[2019-08-27] MEDS ORDERED: BENADRYL IV ONE (10:34)
[2019-08-27] MEDS ORDERED: TYLENOL PO ONE (10:34)
[2019-08-27] MEDS ORDERED: LASIX IV ONE (11:47)
--- NOTE | 2019-08-27 12:17 | PROGRESS NOTE ---
DATE: 08/27/2019 SUBJECTIVE: Mr. Lundberg is kind of discouraged because he is still in the hospital, really no change. Does not feel bad but does not feel good either. OBJECTIVE: Vital signs: Temperature 97.6 degrees, pulse 95, respirations 25, blood pressure 118/77. HEENT: Pupils are equal and round. Lungs: Clear in all lung aguirre. Cardiovascular: Regular rhythm and rate without murmur or S3. Abdomen: Soft. Skin: Warm and dry. Urine output: 1500 mL. ASSESSMENT AND PLAN: 1. One of 2 blood cultures positive for Streptococcus. This could be a contaminant, but more likely it is a pathogen and given the fact he has neutropenia and unfortunately he has a lot of metal in his body, so continue Zosyn and vancomycin and place the patient on Rocephin. 2. Myelodysplastic syndrome, pancytopenia. He has received 1 cycle of Dacogen. Continue transfusion. His platelet count was 9000 so I will give another unit of pheresed platelets. 3. He has left ventricular systolic dysfunction so we have to watch for his fluid volume overload, probably go ahead and give him 40 of Lasix IV today. 4. Anemia as well and neutropenia. His counts today, white count 510, his hematocrit 25, hemoglobin 8.2 but platelet counts are 9000. REVIEW OF HIS ORDERS: He is getting Granix 480 mcg subcutaneously daily. He is on vancomycin and Zosyn. I am going to premedicate before we give him 1 unit of pheresis platelets with methylprednisone 40 mg and Benadryl and Tylenol. I am also going to go ahead and give him a dose of Lasix just to keep him from having fluid overload. cc: Jose C Bates MD
[2019-08-27] MEDS ORDERED: SOLU-MEDROL ONE (13:33)
[2019-08-27] MEDS ORDERED: BENADRYL ONE (13:49)
[2019-08-27] MEDS ORDERED: LASIX ONE (14:00)
[2019-08-27] MEDS: NS 1,000 ML IV SCH (14:12)
[2019-08-27] MEDS: VANCOMYCIN 1 GM/NS 1 GM/250 ML IVPB IV SCH (20:47)
[2019-08-27] MEDS: PROTONIX IV SCH (20:48)
[2019-08-28] MEDS: CARDIZEM PO SCH ×4 (02:30→20:25)
[2019-08-28] MEDS: ZOSYN 3.375 GM in NS 50 ML IV SCH ×2 (02:30→08:43)
[2019-08-28 07:04] LABS: HEMATOCRIT 26.5 % (42.0-52.0); HEMOGLOBIN 8.5 g/dL (14.0-18.0); LYMPH# 0.37 X1000 (1.2-3.4); LYMPH% 94.9 % (20.5-51.1); MCH 29.4 PG (27-31); MCHC 32.1 g/dL (33-37); MCV 91.7 FL (81-99); MONO# 0.01 X1000 (0.11-0.59); MONO% 2.6 % (1.7-9.3); NEUT# 0.01 X1000 (1.4-6.5); NEUT% 2.5 % (42.2-75.2); PLT 24 X1000 (130-400); RBC 2.89 XMIL (4.7-6.1); RDW 16.8 % (11.5-14.5); WBC 0.39 X1000 (4.8-10.8)
[2019-08-28 08:15] LABS: HYPOCHROM 1+; LYMPHS 99 % (21-51); POIKILOCYTOSIS 2+; SCHISTOCYTES OCCASIONAL; SEGS 1 % (42-75)
[2019-08-28] MEDS: GRANIX SUBQ SCH (08:43)
[2019-08-28] MEDS: NS 1,000 ML IV SCH (15:01)
[2019-08-28] MEDS: ROCEPHIN 2 GM in NS 50 ML IV SCH (15:01)
--- NOTE | 2019-08-28 15:39 | INFECTIOUS DISEASE PROGRESS NO ---
DATE: 08/28/2019 PRESENT ILLNESS: The patient has a streptococcal bacteremia. The patient myelodysplastic syndrome and now has pancytopenia as well. MEDICATIONS: The patient was on vancomycin and Zosyn, and I have switched him to Rocephin. PHYSICAL EXAMINATION: Vital Signs: Temperature is 97.2 degrees, pulse 87, respirations 24. Blood pressure is 103/74. General: This is an ill-appearing elderly male. He is in no acute distress. Head/eyes/ears/nose/throat: He has decreased hearing, but his vision is good. I did not see any white patches in his mouth. Neck: No pain with movement. Lungs: Clear to auscultation. Cardiovascular: Heart rate is irregular. Abdomen: Soft and nontender. Neurologic: The patient is alert. He has decreased hearing. He can move his extremities. There is no tremor. LAB AND X-RAY: There is no radiographic study done today. The patient's CBC shows a white count of 390, hemoglobin 8.5, and platelet count of 24,000. The patient's last creatinine was 1.3, and that was drawn 2 days ago. ASSESSMENT AND PLAN: The patient has myelodysplastic syndrome with pancytopenia. The patient has a streptococcal bacteremia. My plan is to discontinue vancomycin and Zosyn and start the patient on Rocephin. I have ordered a CBC and BMP for tomorrow and also for repeat blood cultures. COMORBIDITIES: The patient, as mentioned above, has myelodysplastic syndrome with pancytopenia. The patient also has gastroesophageal reflux disease. cc: Manish Elizalde MD
[2019-08-28] MEDS: PROTONIX IV SCH (20:25)
[2019-08-28] MEDS: DUONEB (A & A) INH PRN (22:50)
[2019-08-29] MEDS: CARDIZEM PO SCH ×4 (01:07→20:03)
[2019-08-29 05:28] LABS: CALCIUM 8.6 mg/dL (8.8-10.2); CREATININE 1.2 mg/dL (0.7-1.2); POTASSIUM 3.5 mmol/L (3.5-5.1)
[2019-08-29 05:39] LABS: BASO# 0.01 X1000 (0.0-0.2); BASO% 1.3 % (0.0-0.8); EOS# 0.02 X1000 (0.0-0.7); EOS% 2.6 % (0.0-10.0); HEMATOCRIT 27.3 % (42.0-52.0); HEMOGLOBIN 8.7 g/dL (14.0-18.0); LYMPH# 0.68 X1000 (1.2-3.4); LYMPH% 89.5 % (20.5-51.1); MCH 29.4 PG (27-31); MCHC 31.9 g/dL (33-37); MCV 92.2 FL (81-99); MONO# 0.02 X1000 (0.11-0.59); MONO% 2.6 % (1.7-9.3); RBC 2.96 XMIL (4.7-6.1); WBC 0.76 X1000 (4.8-10.8)
[2019-08-29 05:46] LABS: NEUT# 0.03 X1000 (1.4-6.5); PLT 12 X1000 (130-400)
[2019-08-29 07:13] LABS: HYPOCHROM 1+; LYMPHS 95 % (21-51); POIKILOCYTOSIS 1+; SEGS 5 % (42-75)
[2019-08-29] MEDS: GRANIX SUBQ SCH (12:44)
[2019-08-29] MEDS: NS 1,000 ML IV SCH (15:00)
[2019-08-29] MEDS: ROCEPHIN 2 GM in NS 50 ML IV SCH (15:00)
--- NOTE | 2019-08-29 15:54 | INFECTIOUS DISEASE PROGRESS NO ---
DATE: 08/29/2019 PRESENT ILLNESS: Mr. Lundberg has a streptococcal bacteremia. There is also myelodysplastic syndrome with pancytopenia as well. The patient has an early oral candidiasis developing. MEDICATIONS: He is receiving Rocephin 2 grams IV every 24 hours. PHYSICAL EXAMINATION: Vital Signs: Temperature is 98 degrees, pulse rate 104, respiratory rate 25, blood pressure 123/83, and O2 saturation is 95% on room air. General: This is an elderly, critically ill gentleman. He is lying in bed, currently in no acute distress. HEENT: Atraumatic, normocephalic. Oral mucous membranes are mildly erythematous, and he is complaining of pain to his tongue. Neck: Supple. Trachea is midline. Cardiovascular: Irregularly irregular with atrial fibrillation and ventricular ectopic beats on the monitor. Respiratory: Lung sounds have bilateral wheezes in the upper lobes. Diminished in the mid and bases. Abdomen: Soft, round, and nontender. Bowel sounds are active. Neurologic: He is awake, alert, and able to move all 4 extremities with generalized weakness noted. LABORATORY AND X-RAY: Today his white count is 0.76, hemoglobin 8.7, platelet count 12,000, absolute neutrophil count is 30. Creatinine is 1.2. GFR 57. His blood cultures grew 1 out of 2 Streptococcus galloly, and there are a set of repeat blood cultures which are pending. No imaging reports today. ASSESSMENT AND PLAN: Mr. Lundberg is being treated for a streptococcal bacteremia in a patient with a defibrillator as well as metal to his left upper extremity and I believe right lower extremity. Unfortunately, he does have myelodysplastic syndrome with pancytopenia. For now, we will continue Rocephin, awaiting repeat sterile blood cultures. Once sterile blood cultures are obtained, he should be able to be discharged home when medically appropriate. He will need a total of 6 weeks of treatment due to the defibrillator and other areas with metal in his body. Day 1 will be the first day of sterile blood cultures, which we have yet to obtain. We will plan to see him back in our office in 3 weeks and then again in 6 weeks, at which time we will most likely start him on a prophylactic regimen of low-dose antibiotics by mouth. At this time, due to the type of strep in his blood, as well as the fact that it was found in 1 our of 2 cultures, Dr. Elizalde would like to try to save the Port-A-Cath. Today his tongue is erythematous, and he is complaining of soreness, so we will start him on Nystatin swish and swallow. These plans have been discussed with and recommended by Dr. Elizalde. COMORBIDITIES: For Mr. Lundberg include MDS with pancytopenia and gastroesophageal reflux disease. Dictated by RORY Awan for Manish Elizalde MD cc: Manish Elizalde MD [facility]
[2019-08-29] MEDS ORDERED: MYCOSTATIN SUSP PO SCH (17:00)
--- NOTE | 2019-08-29 17:22 | PROGRESS NOTE ---
DATE: 08/29/2019 SUBJECTIVE: Mr. Lundberg feels much better today. He is still pretty weak. In looking at his counts, his platelet count was I think around 12,000. White count 700. OBJECTIVE: He remains afebrile, temperature 98.5 degrees, pulse 105, respirations 30, and blood pressure 106/80.HEENT: Pupils are equal and round. Lungs: Clear in all lung aguirre. Cardiovascular: Regular rhythm and rate without murmur or S3. Input and Output: Urine output was 1100 mL. ASSESSMENT AND PLAN: 1. Streptococcal bacteremia all in the face of myelodysplastic syndrome and pancytopenia. He has also got oral candidiasis so he is getting Rocephin 2 g IV q.24 hours, and I think nystatin swish and swallow. His infection appears to be clearing. 2. Myelodysplastic syndrome, pancytopenia. He has received 1 cycle of Dacogen. He is awaiting the next cycle until he improves. Counts are still low, in particular is platelet count so hematology would like to keep him. 3. Left ventricular systolic dysfunction, which is mild. We will watch his volume status. We have given some Lasix a couple of days ago for volume overload which the volume status seems to be good at this time. 4. Nutrition. He does not have much appetite, but I encourage him to eat what he can. He is on Cardizem 30 mg q.6 hours for rate control, and getting Protonix 40 mg IV q.24 hours, and ceftriaxone 2 g IV q.24 hours. He gets Granix 480 mcg subcutaneously daily. cc: Jose C Bates MD
[2019-08-29] MEDS: MYCOSTATIN SUSP PO SCH ×2 (18:24→20:03)
--- NOTE | 2019-08-29 19:11 | HEMO/ONC PROGRESS NOTE ---
DATE: 08/29/2019 Mr. Lundberg is up sitting in his chair eating today. He seems to be feeling better. I had a long conversation with both the patient and his and then their son via telephone. Our hope is that his counts will actually start to improve once the effects of Dacogen wear off. He does have this strep bacteremia that is going to require several weeks of IV antibiotics. We would favor trying to get the patient back into the clinic and then discussing treatment further at that point. Continue to transfuse blood and platelets as needed. It seems like he was premedicated last time and had no issues with his platelet transfusion. He is at 12,000 today and I anticipate he will probably need some more tomorrow. We are trying to keep his platelet count above 10,000. We will be available by telephone for the next 48 hours. We will resume regular followup on 09/01/2019. Dictated by CURT Christopher for Cameron Yo MD cc: Cameron Yo MD
[2019-08-29] MEDS: PROTONIX IV SCH (20:03)
[2019-08-30] MEDS: CARDIZEM PO SCH ×4 (01:40→21:16)
[2019-08-30 06:43] LABS: AGAP 12; BUN 25 mg/dL (8-22); CALCIUM 8.3 mg/dL (8.8-10.2); CHLORIDE 104 mmol/L (98-107); COSMO 290; CREATININE 1.1 mg/dL (0.7-1.2); ESTIMATED GFR > 60; GLUCOSE 144 mg/dL (70-104); POTASSIUM 3.5 mmol/L (3.5-5.1); SODIUM 142 mmol/L (136-145); TCO2 26 mmol/L (25-35)
[2019-08-30 07:02] LABS: BASO# 0.02 X1000 (0.0-0.2); BASO% 2.6 % (0.0-0.8); EOS# 0.03 X1000 (0.0-0.7); EOS% 3.9 % (0.0-10.0); HEMATOCRIT 26.1 % (42.0-52.0); HEMOGLOBIN 8.2 g/dL (14.0-18.0); LYMPH# 0.67 X1000 (1.2-3.4); MCH 29.2 PG (27-31); MCHC 31.4 g/dL (33-37); MCV 92.9 FL (81-99); MONO# 0.04 X1000 (0.11-0.59); MONO% 5.2 % (1.7-9.3); MPV 8.2 FL (7.4-10.4); NEUT# 0.01 X1000 (1.4-6.5); NEUT% 1.3 % (42.2-75.2); PLT < 6 X1000 (130-400); RBC 2.81 XMIL (4.7-6.1); RDW 17.1 % (11.5-14.5); WBC 0.77 X1000 (4.8-10.8)
[2019-08-30] MEDS ORDERED: BENADRYL IV ONE (07:58)
[2019-08-30] MEDS ORDERED: SODIUM CHLORIDE 0.9% INJ ONE (07:59)
[2019-08-30] MEDS ORDERED: PEPCID IV ONE (07:59)
[2019-08-30 08:06] LABS: ANISOCYTOSIS 1+; EOS 5 % (1-10); LYMPHS 80 % (21-51); NRBC 1 % (0-0); POIKILOCYTOSIS 1+; SEGS 10 % (42-75)
[2019-08-30] MEDS: GRANIX SUBQ SCH (08:57)
[2019-08-30] MEDS: MYCOSTATIN SUSP PO SCH ×4 (08:57→21:16)
[2019-08-30 09:26] LABS: RETIC% 1.67 % (0.8-2.1); RETIC-HE 29.5 PG (28.2-36.6)
[2019-08-30 09:32] LABS: INR 1.42; PROTIME 17.6 Seconds (11.0-16.0)
--- NOTE | 2019-08-30 13:02 | PROGRESS NOTE ---
DATE: 08/30/2019 SUBJECTIVE: I have seen and examined Mr. Lundberg today. Mr. Lundberg is in the Critical Care Unit. The and the son were both at the bedside at the time of the encounter. Mr. Lundberg was given Benadryl early on today as a pre treatment for platelet transfusion. According to the family, when they came in early on he was slightly drowsy but by the time I got to see him, he was more awake, alert, and very conversational. OBJECTIVE: Vital signs: Blood pressure is 115/69, pulse of 113, respirations 20, temperature is 99.4 degrees. The patient is saturating 95% on room air. General: Mr. Lundberg is an 89-year- old elderly male. He is in bed. He did not seem to be in any distress. HEENT: Mucosa is pink and moist. Anicteric. Acyanotic. Neck: Supple. No JVD. Chest: Air entry is bilaterally reduced with a few crackles in the posterior lung aguirre. Cardiovascular: Regular rate and rhythm. Abdomen: Soft, nontender. Bowel sounds present. Extremities: No pedal edema. 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 LABORATORY DATA: WBC is 0.77, hemoglobin is 8.2, platelet count of less than 6. The patient is still remarkably neutropenic with absolute neutrophil count of 77. Chemistry is also reviewed, unremarkable. His repeat blood culture from yesterday is still pending. ASSESSMENT: 1. Septic shock on admission, complicated with acute kidney injury, generalized weakness. The patient's blood pressure has fairly been stabilized and has been normotensive for the past 24 to 48 hours. 2. Acute kidney injury, unresolved. 3. Generalized weakness and deconditioning. 4. 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 The patient has an absolute reticulocyte count of 0.9 and the production index is 0.4, all consistent with severe hypoproliferative bone marrow state. 5. Severe thrombocytopenia. The patient continues to track p.r.n. transfusion. 6. Streptococcal bacteremia. Patient is on ceftriaxone. Repeat blood cultures are still pending. 7. Recently diagnosed myelodysplastic syndrome. Patient is status post chemotherapy about 2 weeks prior to hospitalization. 8. Profound neutropenia with thrombocytopenia. 9. Status post pacemaker/AICD. 10. Cough, presumably from atelectasis. We will, however, repeat a chest x-ray to rule out any ongoing infectious process. PLAN: In general, I think Mr. Lundberg is clinically stable. He has been normotensive and afebrile for the past 48 hours. His CBC numbers continues to be remarkably poor. However, he is clinically stable and I think he will be okay being transferred to the medical floor under neutropenic precautions. We will continue with the antibiotic coverage. We are pending the repeat blood cultures and we will get a chest x-ray tomorrow morning. cc: Fletcher Hendricks MD
--- NOTE | 2019-08-30 13:46 | INFECTIOUS DISEASE PROGRESS NO ---
DATE: 08/30/2019 PRESENT ILLNESS: The patient has a streptococcal bacteremia and oral candidiasis. The patient also has myelodysplastic syndrome with pancytopenia. MEDICATIONS: The patient is on Rocephin in a dose of 2 g IV every 24 hours. PHYSICAL EXAMINATION: Vital Signs: Temperature is 97.6 degrees, pulse 112, respirations 16, blood pressure 134/69. General: This is a chronically ill-appearing elderly male. He is in no acute distress. Head/eyes/ears/nose/throat: He can hear my spoken words and see near objects. I did not notice any white coating on his tongue. Neck: No pain with movement. Cardiovascular: Heart rate is irregular. Abdomen: Soft and nontender. Neurologic: The patient is awake. He can move his extremities. There is no tremor. LAB AND X-RAY: There is no new radiographic study. The patient's CBC shows a white count of 770 with an absolute neutrophil count of 0. Hemoglobin is 8.2, and platelet count is less than 6000. The patient's blood culture grew strep as mentioned above. Repeat blood cultures are pending. The creatinine is 1.1. GFR is greater than 60. ASSESSMENT AND PLAN: The patient has streptococcal bacteremia. The plan is to treat him with Rocephin for a total of 6 weeks because his defibrillator could have become infected, while he was bacteremic and also the patient has a Port-A-Cath, which is most likely the origin of the bacteremia. After the patient has had 6 weeks of antibiotic therapy for his bacteremia, I probably will put him on an oral regimen such as penicillin 500 mg p.o. every 12 hours on an indefinite basis. I have gone ahead and ordered an echocardiogram to look for endocarditis. The patient has repeat blood cultures the results of which are pending. The patient has a streptococcal bacteremia. It may have infected his defibrillator and the bacteremia may have occurred from the Port-A-Cath. I plan to treat for 6 weeks with Rocephin with day 1 being the first day that the repeat blood cultures are sterile and then follow a 6-week course with an oral will with an indefinite oral course of penicillin 500 mg every 12 hours on an indefinite basis. I have gone ahead and ordered an echocardiogram today to look for endocarditis. COMORBIDITIES: The patient myelodysplastic syndrome with pancytopenia. He also has gastroesophageal reflux disease. cc: Manish Elizalde MD
[2019-08-30] MEDS: ROCEPHIN 2 GM in NS 50 ML IV SCH (14:58)
[2019-08-30] MEDS: PROTONIX IV SCH (21:16)
[2019-08-30] MEDS: SODIUM CHLORIDE 0.9% INJ SCH (21:17)
[2019-08-31] MEDS: CARDIZEM PO SCH ×4 (02:59→20:20)
[2019-08-31 07:29] LABS: BASO# 0.03 X1000 (0.0-0.2); BASO% 3.1 % (0.0-0.8); EOS# 0.04 X1000 (0.0-0.7); EOS% 4.2 % (0.0-10.0); HEMATOCRIT 27.4 % (42.0-52.0); HEMOGLOBIN 8.5 g/dL (14.0-18.0); LYMPH# 0.81 X1000 (1.2-3.4); LYMPH% 84.4 % (20.5-51.1); MCH 28.9 PG (27-31); MCV 93.2 FL (81-99); MONO# 0.03 X1000 (0.11-0.59); MONO% 3.1 % (1.7-9.3); MPV 10.6 FL (7.4-10.4); NEUT% 5.2 % (42.2-75.2); PLT 50 X1000 (130-400); RBC 2.94 XMIL (4.7-6.1); RDW 17.4 % (11.5-14.5); WBC 0.96 X1000 (4.8-10.8)
[2019-08-31 07:39] LABS: NEUT# 0.05 X1000 (1.4-6.5)
[2019-08-31 07:59] LABS: AGAP 11; BUN 23 mg/dL (8-22); CALCIUM 8.6 mg/dL (8.8-10.2); CHLORIDE 102 mmol/L (98-107); COSMO 286; CREATININE 1.1 mg/dL (0.7-1.2); ESTIMATED GFR > 60; GLUCOSE 157 mg/dL (70-104); POTASSIUM 3.4 mmol/L (3.5-5.1); SODIUM 140 mmol/L (136-145); TCO2 27 mmol/L (25-35)
[2019-08-31 08:04] LABS: EOS 5 % (1-10); LYMPHS 90 % (21-51); NRBC 5 % (0-0); SEGS 5 % (42-75)
--- NOTE | 2019-08-31 08:27 | Diag Imaging Result Doc PS360 ---
CHEST-2 VIEWS - 08/31/2019 INDICATION: hypoxia COMPARISON: 08/22/2019 FINDINGS: Stable right chest port and left pacemaker. Stable cardiomegaly and pulmonary vascular congestion. There are small pleural effusions that have worsened since prior. There is some worsening patchy infiltrate or pulmonary edema as well centrally. IMPRESSION: Worsening from prior. Electronically signed by William Fulton 08/31/2019 8:25 AM
[2019-08-31] MEDS: GRANIX SUBQ SCH (09:53)
[2019-08-31] MEDS: MYCOSTATIN SUSP PO SCH ×4 (09:53→20:20)
--- NOTE | 2019-08-31 11:33 | PROGRESS NOTE ---
DATE: 08/31/2019 SUBJECTIVE: This morning, Mr. Lundberg was sitting up in a chair. He refers to be doing well. According to his , who was at the bedside, Mr. Lundberg was slightly confused early on today. Per the nursing staff, he tried even pulling out his PEG tube early on today. However, at the time of the encounter, he was sitting up, very calm and cooperative. OBJECTIVE: Vital Signs: Blood pressure is 106/52, pulse of 94, respirations 19, temperature is 98.6 degrees, the patient was saturating 94% on room air. General: Mr. Lundberg is an 89-year-old gentleman. He is sitting up in a chair. He did not seem to be in any distress. HEENT: Mucosa is pink and moist. Anicteric. Acyanotic. Neck: Supple. Chest: Good air entry bilaterally. Just a few crackles in the posterior lung aguirre. Cardiovascular: Regular rate and rhythm. No murmurs, no rubs, no gallops. GI: Abdomen was soft, nontender. Bowel sounds present. Extremities: No pedal edema. BIODIESEL PRODUCTION TECHNICIAN: The patient was awake, alert, oriented. There is no focal deficit. IMAGING AND LABORATORY DATA: WBC is up to 0.96, hemoglobin is 8.5, platelet count is 50,000. Chemistry is also reviewed. Potassium is 3.4. Rest of chemistry is within normal range. Chest x-ray this morning does show some patchy infiltrates or pulmonary edema. The patient's repeat blood cultures have come back negative for 48 hours. MEDICATIONS: Current medications have all been reviewed. No changes. ASSESSMENT: 1. Septic shock on admission, complicated with acute kidney injury, streptococcal bacteremia, and generalized weakness. The patient has been transferred out of the intensive care unit. Seems to be doing a lot better. 2. Acute kidney injury on admission, resolved. 3. Severe pancytopenia with hypoproliferative bone marrow state, most likely due to chemotherapy side effects. 4. Severe thrombocytopenia. The patient was transfused platelet count yesterday. That has significantly improved today. 5. Streptococcal bacteremia. The patient is on ceftriaxone. Repeat blood cultures have been 48 hours negative. 6. History of myelodysplastic syndrome. The patient is status post chemotherapy about 2 weeks prior to his hospitalization. 7. Status post pacemaker/automatic implantable cardioverter-defibrillator. 8. Questionable pulmonary edema versus pneumonia. The patient is on antimicrobial therapy. According to him, cough has significantly improved. He is still slightly hypoxemic. Will continue supplemental oxygen. cc: Fletcher Hendricks MD MTDDante
[2019-08-31] MEDS: ROCEPHIN 2 GM in NS 50 ML IV SCH (13:15)
--- NOTE | 2019-08-31 13:36 | ECHO REPORT ---
ORDER DATE: 08/30/2019 ECHOCARDIOGRAPHIC MEASUREMENTS: 1. Left ventricular septal thickness 1.0. 2. Left ventricular internal diameter in diastole 5.6. 3. Posterior wall thickness 0.8. 4. Aortic root. 4.5. 5. Left atrium 4.2. SUMMARY: 1. Technically difficult study due to limited acoustic window quality. 2. Aortic valve is not well imaged, but is probably trileaflet and demonstrates moderate sclerotic change. Peak gradient across the aortic valve is 37 mmHg with a mean gradient of 25 mmHg. Moderate aortic stenosis is suggested. Mitral and tricuspid valves are without evidence of structural abnormality while pulmonic valve is not well demonstrated. There is moderate to severe mitral regurgitation and mild tricuspid regurgitation. Estimated systolic PA pressure by Doppler is 50 to 55 mmHg suggesting moderate pulmonary hypertension. The aortic root is [id number] enlarged. 3. Mild left ventricular enlargement with normal wall thickness demonstrated. The estimated left ventricular ejection fraction approximately 20% in the setting of global hypokinesis. Left atrium is mildly enlarged. Right atrium and right ventricle are grossly normal in size with grossly preserved right ventricular systolic function. Pacemaker lead (versus defibrillator lead) is evident in the right ventricle. 4. No pericardial effusion. 5. Appearance of inferior vena cava suggests normal central venous pressure. cc: MD Manish Meyers MD
[2019-08-31] MEDS: PROTONIX IV SCH (20:20)
[2019-09-01] MEDS: DUONEB (A & A) INH PRN (04:47)
[2019-09-01] MEDS: CARDIZEM PO SCH ×4 (05:32→22:02)
[2019-09-01 07:57] LABS: BASO# 0.02 X1000 (0.0-0.2); BASO% 2.5 % (0.0-0.8); EOS# 0.03 X1000 (0.0-0.7); EOS% 3.7 % (0.0-10.0); HEMATOCRIT 26.3 % (42.0-52.0); IMM GRAN# 0.03 X1000 (0.0-0.04); IMM GRAN% 3.7 % (0.0-0.5); LYMPH% 86.4 % (20.5-51.1); MCH 28.7 PG (27-31); MCHC 30.4 g/dL (33-37); MCV 94.3 FL (81-99); MONO# 0.02 X1000 (0.11-0.59); MONO% 2.5 % (1.7-9.3); MPV 10.8 FL (7.4-10.4); NEUT% 1.2 % (42.2-75.2); PLT 41 X1000 (130-400); RBC 2.79 XMIL (4.7-6.1); RDW 17.8 % (11.5-14.5); WBC 0.81 X1000 (4.8-10.8)
[2019-09-01 07:58] LABS: NEUT# 0.01 X1000 (1.4-6.5)
[2019-09-01 08:00] LABS: AGAP 12; BUN 21 mg/dL (8-22); CALCIUM 8.5 mg/dL (8.8-10.2); CHLORIDE 102 mmol/L (98-107); COSMO 289; CREATININE 1.1 mg/dL (0.7-1.2); ESTIMATED GFR > 60; GLUCOSE 145 mg/dL (70-104); SODIUM 142 mmol/L (136-145); TCO2 28 mmol/L (25-35)
[2019-09-01] MEDS: GRANIX SUBQ SCH (10:00)
[2019-09-01] MEDS: MYCOSTATIN SUSP PO SCH ×4 (10:00→22:02)
[2019-09-01] MEDS: ROCEPHIN 2 GM in NS 50 ML IV SCH (13:42)
--- NOTE | 2019-09-01 14:41 | PROGRESS NOTE ---
DATE: 09/01/2019 SUBJECTIVE: This morning, Mr. Lundberg refers to be doing fair. No new complaints, and he remains afebrile. OBJECTIVE: Vital Signs: Blood pressure is 102/63, pulse of 93, respirations 19, temperature 97.7 degrees, the patient was saturating 100% on room air. General: Mr. Lundberg is an 89-year-old, elderly, male. He was sitting up in the chair. No distress. HEENT: Mucosa is pink and moist. Anicteric. Acyanotic. Neck: Supple. Respiratory: There is good air entry bilaterally. A few distant crackles in the posterior lung aguirre. Cardiovascular: Regular rate and rhythm. No murmurs, no rubs, no gallops. GI: Abdomen is soft, nontender. Bowel sounds present. Extremities: No pedal edema. Distal pulses present. VINYL CUTTER: The patient is awake, alert, and oriented. There is no focal deficit. LABORATORY DATA: WBC is 0.81, hemoglobin is 8.0, platelet count of 41,000. Chemistry was also reviewed and is completely unremarkable. ASSESSMENT: 1. Septic shock on admission, complicated with acute kidney injury, streptococcal bacteremia, and generalized weakness, improved. 2. Acute kidney injury on admission, resolved. 3. Severe pancytopenia with hypoproliferative bone marrow state secondary to chemotherapy side effects. The patient is getting blood products as needed. 4. Severe thrombocytopenia. The patient was transfused platelets 3 days ago. Platelet count had improve adequately. This morning, it is down to about 40. 5. Streptococcal bacteremia. The patient is on ceftriaxone. Repeat blood culture has been 48 hours negative. The patient is being seen by Infectious Disease, and there is a plan to treat her for 6 weeks. 6. History of myelodysplastic syndrome. The patient got chemotherapy about 2 weeks prior to hospitalization. 7. Status post pacemaker/automatic implantable cardioverter-defibrillator. 8. Pulmonary edema versus bibasilar pneumonia. The patient is on antimicrobial coverage. He seems to be doing a lot better today. In general, I think Mr. Lundberg is fairly stable. We are still waiting for the bone marrow response to where it is going to be safe enough to send him home. cc: Fletcher Hendricks MD
--- NOTE | 2019-09-01 16:30 | INFECTIOUS DISEASE PROGRESS NO ---
DATE: 09/01/2019 PRESENT ILLNESS: The patient has a streptococcal bacteremia which I think originated from his Port-A-Cath. He also has oral candidiasis. The patient has myelodysplastic syndrome with an associated pancytopenia. MEDICATIONS: The patient is receiving Rocephin 2 g IV every 24 hours. This is day 3 of treatment with Rocephin with day 1 being the first day that the repeat blood cultures were sterile. PHYSICAL EXAMINATION: Vital Signs: Temperature is 98.8 degrees, pulse 98, respirations 19, blood pressure 100/55. General: This is a chronically ill elderly male. He is in no acute distress and he told me he is not hurting at all today. Head/eyes/ears/nose/throat: He can hear my spoken words and see near objects. The patient's mouth is more erythematous and there were a few white patches I saw. Neck: No pain with movement. Cardiovascular: The patient's heart rate is irregular. Thorax, on the left side the patient has a combination defibrillator pacemaker. The site is not swollen or erythematous. On the right side, the patient has a Port-A-Cath. That site too is not swollen or erythematous either. Abdomen: Soft and nontender. Neurologic: Today, the patient today was a little bit more awake. He did talk in a coherent fashion and he did move his extremities. LAB AND X-RAY: Chest x-ray shows worsening pulmonary edema/pneumonia in the left lower lobe. Creatinine is 1.1. GFR is greater than 60. CBC shows a white count of 810. Hemoglobin 8, platelet count 41,000. ASSESSMENT AND PLAN: The patient has a streptococcal bacteremia for which she is being treated with Rocephin. This is day 3 of treatment with Rocephin. The patient may have a pneumonia as well. My plan is to continue Rocephin. Also, I have ordered a procalcitonin level to help decide whether the patient has a pneumonia or not. I plan to treat the patient for his bacteremia which I think comes from his Port-A-Cath for 6 weeks to try to clear the infection if it involves the combination defibrillator and pacemaker and also the patient has metal in his extremities and these 2 could have become infected while the patient was bacteremic. After treatment of 6 weeks with Rocephin, with day 1 being the first day that the patient's repeat blood cultures are negative I will give the patient a penicillin VK 500 mg p.o. every 12 hours on an indefinite basis. This is being done so that if there is still some remaining infection that it hopefully will be kept in a dormant state and not become active. COMORBIDITIES: The patient is elderly. He has myelodysplastic syndrome with an associated pancytopenia. cc: Manish Elizalde MD
--- NOTE | 2019-09-01 19:44 | HEMO/ONC PROGRESS NOTE ---
DATE: 09/01/2019 SUBJECTIVE: Mr. Lundberg is lying in his hospital bed. He has 2 family members at bedside. OBJECTIVE: Vital Signs: Temperature 98.8 degrees, heart rate 98, respirations 19, blood pressure 100/55, O2 saturation 95% on 2 L nasal cannula. LABS: White blood cells are 0.81, hemoglobin 8.0, platelet count 41,000, ANC is 0.01. PHYSICAL EXAMINATION: CV: S1, S2 heard. Respiratory: Coarse breath sounds. Gastrointestinal: Soft. Musculoskeletal: No obvious bony abnormalities. Extremities: He has some trace edema. ASSESSMENT AND PLAN: 1. Myelodysplastic syndrome. He is status post 1 cycle of Dacogen. Treatment is currently on hold. Conversation with the family about proceeding with further treatment when able versus stopping treatment. We will have to see how the patient does. The hope is that he may be able to go to rehab. Again, his counts are likely not going to improve much beyond what they currently are, given his underlying disease. Until he can get further treatment, he will likely just need continued supportive care. We have discussed with the family that with myelodysplastic syndrome, counts and overall condition usually get worse before they improve. We used to have to get a couple cycles in before we see improvement. 2. Septic shock. This seems to have improved since his admission. 3. Pancytopenia, which is secondary to both his chemotherapy as well as underlying disease. Continue supportive care as per above. 4. Staphylococcal bacteremia. His repeat blood cultures are negative. IV antibiotic management per Infectious Disease. 5. Malnutrition. We will go ahead and order for him to get Ensure. 6. Deconditioning. We will have Physical Therapy come by and see the patient now that he is out of the unit. Dictated by CURT Christopher for Tameka Carpenter MD cc: Tameka Carpenter MD I have seen and examined the patient and the above note reflects my history, physical exam, assessment and plan. Tameka FLOYD
[2019-09-01] MEDS: PROTONIX IV SCH (22:02)
[2019-09-01] MEDS: REMERON PO SCH (22:02)
[2019-09-02] MEDS: CARDIZEM PO SCH ×4 (03:27→21:18)
[2019-09-02 07:49] LABS: BASO# 0.01 X1000 (0.0-0.2); BASO% 1.2 % (0.0-0.8); EOS# 0.03 X1000 (0.0-0.7); EOS% 3.7 % (0.0-10.0); HEMATOCRIT 25.4 % (42.0-52.0); HEMOGLOBIN 7.9 g/dL (14.0-18.0); LYMPH# 0.67 X1000 (1.2-3.4); LYMPH% 81.7 % (20.5-51.1); MCH 29.6 PG (27-31); MCHC 31.1 g/dL (33-37); MCV 95.1 FL (81-99); MONO# 0.03 X1000 (0.11-0.59); MONO% 3.7 % (1.7-9.3); NEUT# 0.08 X1000 (1.4-6.5); NEUT% 9.7 % (42.2-75.2); PLT 35 X1000 (130-400); RBC 2.67 XMIL (4.7-6.1); RDW 18.1 % (11.5-14.5); WBC 0.82 X1000 (4.8-10.8)
[2019-09-02 07:54] LABS: AGAP 9; BUN 17 mg/dL (8-22); CHLORIDE 101 mmol/L (98-107); COSMO 281; ESTIMATED GFR > 60; GLUCOSE 138 mg/dL (70-104); POTASSIUM 3.6 mmol/L (3.5-5.1); SODIUM 139 mmol/L (136-145); TCO2 29 mmol/L (25-35)
[2019-09-02] MEDS: MYCOSTATIN SUSP PO SCH ×4 (10:31→21:18)
[2019-09-02] MEDS: GRANIX SUBQ SCH (10:31)
--- NOTE | 2019-09-02 14:32 | INFECTIOUS DISEASE PROGRESS NO ---
DATE: 09/02/2019 PRESENT ILLNESS: The patient has a streptococcal bacteremia, which I think originated from his Port-A-Cath. He also has oral candidiasis. The patient has myelodysplastic syndrome with an associated pancytopenia. MEDICATIONS: The patient is on Rocephin 2 grams IV daily. This is day 4 of treatment with Rocephin, with day 1 being the first day that the repeat blood cultures were sterile. PHYSICAL EXAMINATION: Vital Signs: Temperature is 97.6 degrees, pulse 97, respirations 18, blood pressure 112/60. General: This is a chronically ill-appearing elderly male. He is lethargic, but he is in no acute distress. Head/Eyes/Ears/Nose/Throat: He can hear my spoken words and see near objects. He does not have any white coating on his tongue. Neck: No pain with movement. Cardiovascular: Heart rate is irregular. Thorax: The patient has a combination defibrillator pacemaker on the left side of his chest and a Port-A-Cath present on the right side. Both sides are not erythematous or purulent. Abdomen: Soft and nontender. Neurologic: The patient, as I mentioned above, is lethargic, but he is able to talk in a coherent fashion and also he can move his extremities. LAB AND X-RAY: CBC shows a white count of 820 hemoglobin with an absolute neutrophil count of 82. Hemoglobin is 7.9, platelet count is 35,000. Creatinine is 1. GFR is greater than 60. ASSESSMENT AND PLAN: Patient has a streptococcal bacteremia, which I think originated from his Port-A-Cath. My plan is to treat the patient for 6 weeks with Rocephin in case that while the patient was bacteremic his defibrillator/pacemaker could have become infected and also the patient has metal in his extremities, which also could have become infected while the patient was bacteremic. Following the 6 weeks of IV Rocephin, I will put the patient on penicillin VK 500 mg p.o. every 12 hours for an indefinite period of time. COMORBIDITIES: The patient is elderly and he has myelodysplastic syndrome with an associated pancytopenia. cc: Manish Elizalde MD
[2019-09-02] MEDS: ROCEPHIN 2 GM in NS 50 ML IV SCH (14:34)
--- NOTE | 2019-09-02 15:31 | PROGRESS NOTE ---
DATE: 09/02/2019 SUBJECTIVE: This morning Mr. Lundberg refers to be doing fair. Son was at the bedside. He did have a lot of questions about how the numbers are not getting any better, even after transfusion. It looks like it is getting even lower. OBJECTIVE: Vital signs: Blood pressure is 112/60, pulse of 97, respirations 18, temperature 97.6 degrees. General: Mr. Lundberg is an 89-year-old male. He was sitting in the chair, did not seem to be in any distress. HEENT: Mucosa is pink and moist. Anicteric. Acyanotic. Neck: Supple. Did not see any JVD or carotid bruit. Respiratory System: Air entry is bilaterally reduced. A few crackles posteriorly but no wheezing, no rhonchi. Cardiovascular: Regular rate and rhythm. No murmurs, no rubs, no gallops. Gastrointestinal: Abdomen was soft. Bowel sounds present. Extremities: No pedal edema. Distal pulses are present. EMERGENCY MEDICAL SERVICES COORDINATOR: Patient was awake, alert. No focal deficit. He gets kind of tired when talking. LABORATORY DATA: WBC is 0.82, hemoglobin is 7.9, platelet count of 35,000. Chemistry is also reviewed. It was completely unremarkable. The patient's repeat blood cultures have been 48 hours negative. His antibiotics have been switched to ceftriaxone. Apparently, the pathogen has been changed to Strep gallolyticus. ASSESSMENT: 1. Septic shock on presentation, complicated with acute kidney injury, streptococcal bacteremia and generalized weakness, improved. 2. Severe pancytopenia with hypoproliferative bone marrow state secondary to chemotherapy side effects. 3. Acute kidney injury on admission, resolved. 4. Streptococcal bacteremia. Patient is on ceftriaxone. Repeat blood cultures have been negative. Infectious Disease is on board. There is a plan to treat him for six weeks. 5. 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 The patient is status post first cycle of chemo with Dacogen two weeks prior to hospitalization. The patient is being followed up by Hem/Onc. 6. Status post pacemaker/automatic implantable cardioverter defibrillator. 7. Pulmonary edema versus bibasilar pneumonia. Patient is on antimicrobial coverage and saturating well. PLAN: In general, I think Mr. Lundberg remains stable, continues to be critically sick. His cell count continues to be extremely low. We are going to continue with the current antibiotics and support him with blood products and hope that his bone marrow recovers enough to make its own blood elements. There is a plan to hopefully get Mr. Lundberg to rehab. cc: Fletcher Hendricks MD MTDD
[2019-09-02] MEDS: PROTONIX IV SCH (21:18)
[2019-09-02] MEDS: REMERON PO SCH (21:18)
[2019-09-03] MEDS: CARDIZEM PO SCH ×4 (02:18→21:20)
[2019-09-03 08:08] LABS: BASO# 0.02 X1000 (0.0-0.2); BASO% 2.3 % (0.0-0.8); EOS# 0.02 X1000 (0.0-0.7); EOS% 2.3 % (0.0-10.0); HEMATOCRIT 26.3 % (42.0-52.0); HEMOGLOBIN 7.9 g/dL (14.0-18.0); LYMPH# 0.73 X1000 (1.2-3.4); LYMPH% 83.9 % (20.5-51.1); MCH 29.2 PG (27-31); MONO# 0.01 X1000 (0.11-0.59); MONO% 1.1 % (1.7-9.3); NEUT% 10.4 % (42.2-75.2); RBC 2.71 XMIL (4.7-6.1); RDW 18.9 % (11.5-14.5); WBC 0.87 X1000 (4.8-10.8)
[2019-09-03 08:10] LABS: PLT 32 X1000 (130-400)
[2019-09-03 08:11] LABS: NEUT# 0.09 X1000 (1.4-6.5)
[2019-09-03] MEDS: MYCOSTATIN SUSP PO SCH ×4 (10:11→21:21)
[2019-09-03] MEDS: GRANIX SUBQ SCH (10:11)
--- NOTE | 2019-09-03 10:25 | Extremity Venous Study ---
PROCEDURE NAME: Venous U/S Left Arm - 08/31/2019 PROCEDURE: Left upper extremity venous imaging. CHIEF COMPLAINT: Left arm edema. DESCRIPTION OF PROCEDURE IN DETAIL: Left upper extremity is imaged. The right subclavian vein is imaged for comparison purposes. The left internal jugular, subclavian, axillary, brachial, basilic and cephalic veins are imaged. There is partial compressibility of the cephalic vein at the antecubital fossa. All other veins are compressible. INTERPRETATION: Non occluding thrombus of the left cephalic vein at the elbow. cc: MD Fletcher Arrintgon MD
[2019-09-03] MEDS: VALTREX PO SCH ×2 (11:35→21:20)
--- NOTE | 2019-09-03 12:25 | PROGRESS NOTE ---
DATE: 09/03/2019 SUBJECTIVE: Today Mr. Lundberg refers to be doing fair. Denies really any complaints. No bleeding. He just feels quite weak. OBJECTIVE: Vital signs: Blood pressure is 117/63, pulse of 85, respiration is 16, temperature 97.5 degrees, the patient is saturating 100%. General: Mr. Lundberg is an 89-year-old gentleman. He is sitting up in a chair. No distress. HEENT: Mucosa is pink and moist. Anicteric. Acyanotic. The mouth has ulcerations on the lips and on the gum. Neck: Supple. Chest: Good air entry bilaterally. There were no crepitations, no rhonchi. Cardiovascular: Regular rate and rhythm. No murmurs, no rubs, no gallops. Gastrointestinal: Abdomen was soft, nontender. Bowel sounds present. Extremities: No pedal edema. Distal pulses are present. Central nervous system: Patient is awake, alert, oriented. There is no focal deficit. LABORATORY DATA: WBC is 0.87, hemoglobin 7.9, platelet count of 32,000. Chemistry from yesterday was unremarkable. The patient's procalcitonin was 0.15. ASSESSMENT AND PLAN: 1. Septic shock on presentation, complicated with acute kidney injury, streptococcal bacteremia and generalized weakness, improved. 2. Severe pancytopenia with hypoproliferative bone marrow state secondary to chemotherapy side effects (Dacogen). 3. Acute kidney injury on admission, resolved. 4. Streptococcal bacteremia. Patient is on ceftriaxone. Repeat blood cultures have been negative. 5. 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 The patient follows up with Dr. Carpenter. He is status post 1st cycle of chemotherapy with Dacogen 2 weeks prior to hospitalization. 6. Status post pacemaker. 7. Pulmonary edema versus bibasilar pneumonia. The patient's procalcitonin level is 0.15, which is quite low so it is very likely this is not bacterial pneumonia and that was all about fluid. 8. Mucositis. The patient has been started on antifungal. We will add Valtrex. Disposition. In general, I think Mr. Lundberg remains stable. No new changes. He is on ceftriaxone for 6 weeks. We are going to continue to monitor his CBC. cc: Fletcher Hendricks MD [facility]
[2019-09-03] MEDS: ROCEPHIN 2 GM in NS 50 ML IV SCH (15:30)
[2019-09-03] MEDS: REMERON PO SCH (21:20)
[2019-09-03] MEDS: PROTONIX IV SCH (21:21)
[2019-09-04] MEDS: CARDIZEM PO SCH ×4 (02:23→20:26)
[2019-09-04] MEDS: GRANIX SUBQ SCH (08:37)
[2019-09-04] MEDS: MYCOSTATIN SUSP PO SCH ×4 (08:37→20:26)
[2019-09-04] MEDS: VALTREX PO SCH ×2 (08:37→20:26)
[2019-09-04 09:04] LABS: BASO# 0.02 X1000 (0.0-0.2); BASO% 2.6 % (0.0-0.8); EOS# 0.01 X1000 (0.0-0.7); EOS% 1.3 % (0.0-10.0); HEMATOCRIT 26.2 % (42.0-52.0); LYMPH# 0.61 X1000 (1.2-3.4); LYMPH% 79.2 % (20.5-51.1); MCH 29.9 PG (27-31); MCHC 30.5 g/dL (33-37); MCV 97.8 FL (81-99); MONO# 0.03 X1000 (0.11-0.59); MONO% 3.9 % (1.7-9.3); MPV 11.7 FL (7.4-10.4); PLT 36 X1000 (130-400); RBC 2.68 XMIL (4.7-6.1); RDW 19.7 % (11.5-14.5); WBC 0.77 X1000 (4.8-10.8)
[2019-09-04] MEDS: ROCEPHIN 2 GM in NS 50 ML IV SCH (14:58)
--- NOTE | 2019-09-04 15:37 | PROGRESS NOTE ---
DATE: 09/04/2019 SUBJECTIVE: Today, Mr. Lundberg refers to be doing okay, but he was just sleeping. According to the family, he has just been sleeping throughout the day. He said he is tired, and he just wants to be resting. OBJECTIVE: Vital signs: Blood pressure is 108/53, pulse of 79, respirations 18, temperature is 98.4 degrees. General: Mr. Lundberg is an 89-year-old male. He is in bed in no distress. Mucosa is pink and moist. Anicteric. Acyanotic. Neck: Supple. Chest: Good air entry bilaterally. A few crackles in the posterior lung aguirre. Cardiovascular: Regular rate and rhythm. There is a 2/6 TR murmur. No rubs no gallops. GI: Abdomen is soft and nontender. Bowel sounds present. Extremities: No pedal edema. Distal pulses are present. There is minimal swelling on the left upper extremity. GLOBAL PROGRAM MANAGER: Patient is sleeping but easily arousable and follows basic commands. LABORATORY DATA: WBCs 0.77, hemoglobin is 8, platelet count of 36,000, which is fairly stable from yesterday. ASSESSMENT AND PLAN: 1. Septic shock on presentation, complicated with acute kidney injury. Streptococcal bacteremia and generalized weakness improved. 2. Severe pancytopenia with hypoproliferative bone marrow state secondary to chemotherapy side effects and underlying disease which is myelodysplastic syndrome. 3. Streptococcal bacteremia. Subsequent blood cultures have been negative. Patient is on ceftriaxone. There is a plan to treat for 6 weeks. 4. 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 The patient follows up with Dr. Carpenter. He had a 1st cycle of chemotherapy with Dacogen 2 weeks prior to his hospitalization. 5. Status post pacemaker/automatic implantable cardioverter defibrillator. 6. Pulmonary edema secondary to congestive heart failure, improved. 7. Severe systolic dysfunction with ejection fraction of approximately 20% in the setting of global hypokinesis, noted. 8. Moderate pulmonary hypertension with systolic pulmonary artery pressures of 50% to 55%. 9. Nonocclusive left cephalic vein thrombosis, noted. The patient is already coagulopathic, so will not put him on any blood thinner. 10. 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 This morning, the lip lesion seems to be drying up. 11. Generalized weakness and deconditioning. Physical therapy is on board. 12. Disposition will depend on the rest of his hospital course. cc: Fletcher Hendricks MD MTDD
[2019-09-04] MEDS: REMERON PO SCH (20:26)
[2019-09-04] MEDS: SODIUM CHLORIDE 0.9% INJ SCH (20:26)
[2019-09-04] MEDS: PROTONIX IV SCH (20:26)
[2019-09-05] MEDS: CARDIZEM PO SCH ×4 (02:36→20:57)
[2019-09-05 07:41] LABS: BASO# 0.01 X1000 (0.0-0.2); BASO% 1.6 % (0.0-0.8); EOS# 0.01 X1000 (0.0-0.7); EOS% 1.6 % (0.0-10.0); HEMATOCRIT 25.3 % (42.0-52.0); HEMOGLOBIN 7.6 g/dL (14.0-18.0); LYMPH# 0.43 X1000 (1.2-3.4); LYMPH% 67.2 % (20.5-51.1); MCH 29.8 PG (27-31); MCV 99.2 FL (81-99); MONO# 0.02 X1000 (0.11-0.59); MONO% 3.1 % (1.7-9.3); MPV 11.6 FL (7.4-10.4); NEUT# 0.17 X1000 (1.4-6.5); NEUT% 26.5 % (42.2-75.2); PLT 45 X1000 (130-400); RBC 2.55 XMIL (4.7-6.1); RDW 20.1 % (11.5-14.5); WBC 0.64 X1000 (4.8-10.8)
[2019-09-05] MEDS: MYCOSTATIN SUSP PO SCH ×4 (08:39→20:57)
[2019-09-05] MEDS: VALTREX PO SCH ×2 (08:39→20:57)
--- NOTE | 2019-09-05 11:24 | INFECTIOUS DISEASE PROGRESS NO ---
DATE: 09/05/2019 PRESENT ILLNESS: The patient has a streptococcal bacteremia, which I think originated from the patient's Port-A-Cath. He has oral candidiasis. 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 The patient has myelodysplastic syndrome with an associated pancytopenia. MEDICATIONS: The patient is receiving Rocephin for 8 days now, with day 1 being the first day that the repeat blood cultures were negative. The patient is on nystatin for oral candidiasis. The patient is receiving Valtrex, ordered by Dr. Hendricks, for the patient's presumed herpes simplex lesion on the lower lip. PHYSICAL EXAMINATION: Vital Signs: Temperature is 97.4 degrees, pulse 87, respirations 18, blood pressure is 131/98. General: This is a chronically ill-appearing, elderly male. He is lethargic, but he is in no acute distress. HEENT: He can hear my spoken words and appears to be able to see near objects. I did not see any white coating of his tongue. On the lip, there is a crusted lesion as mentioned above. Cardiovascular: Heart rate is irregular. Thorax: The patient has a combination defibrillator pacemaker on the left side and a Port-A-Cath on the right side. Both areas are not erythematous or purulent. Abdomen: Soft and nontender. Neurologic: The patient is lethargic, but he can be aroused and he can move his extremities. LABORATORY DATA: CBC shows a white count of 640, hemoglobin 7.6, and platelet count 45,000. There is no BMP back yet. The patient's procalcitonin is 0.15, which means that it is unlikely that he has pneumonia. ASSESSMENT AND PLAN: The patient has a streptococcal bacteremia, which as mentioned above, I think originated from Port-A-Cath. I plan to treat the patient for 6 weeks with intravenous Rocephin, in case while the patient was bacteremic, his defibrillator/pacemaker could have become infected. The patient also has metal in his extremities, which also could have become infected. Also, I think it will be good to treat for a prolonged period to save the Port-A-Cath and not having to take it out. Following being on Rocephin, I will put the patient on Pen-VK 500 mg by mouth every 12 hours indefinitely. COMORBIDITIES: The patient is elderly. He has myelodysplastic syndrome with an associated pancytopenia. cc: Manish Elizalde MD
[2019-09-05] MEDS: GRANIX SUBQ SCH (11:48)
[2019-09-05] MEDS: ROCEPHIN 2 GM in NS 50 ML IV SCH (14:45)
--- NOTE | 2019-09-05 17:00 | PROGRESS NOTE ---
DATE: 09/05/2019 SUBJECTIVE: This morning Mr. Lundberg was sitting up at a chair. He refers to be doing well. The and the daughter were both at the bedside at the time of the encounter. OBJECTIVE: Vital Signs: Blood pressure is 152/53, pulse of 93, respiration is 18, temperature is 100.6 degrees. General: Mr. Lundberg is an 89-year-old gentleman. He was sitting at a chair. He was not in any distress. HEENT: Mucosa is pink and moist. Anicteric. Acyanotic. Neck: Supple. Chest: Good air entry bilateral. A few crackles in the posterior lung field. There is a port on the right anterior chest wall. Cardiovascular: Regular rate and rhythm. There is a 2/6 TR murmur. No rubs, no gallops. Gastrointestinal: Abdomen is soft. Bowel sounds present. Extremities: No pedal edema. Distal pulses present. Central Nervous System: The patient is awake, alert, oriented. LABORATORY DATA: WBC is 0.64, hemoglobin is 7.6, platelet count of 45,000. Chemistry is also reviewed. It is completely unremarkable from days before. ASSESSMENT AND PLAN: 1. Septic shock on presentation, complicated with acute kidney injury, streptococcal bacteremia, and generalized weakness, improved. 2. Severe pancytopenia with hypoproliferative bone marrow state secondary to chemotherapy side effects and underlying myelodysplastic syndrome. The patient continues to be pancytopenic. We will continue monitoring and transfuse blood products as needed. Streptococcal bacteremia. Subsequent blood cultures have been negative. The patient is currently on ceftriaxone, and there is a plan to treat for a total of 6 weeks. 1. 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 The patient follows up with Dr. Carpenter. He had a first cycle of chemotherapy with Dacogen 2 weeks prior to his hospitalization. Subsequent chemotherapy has been withheld until the patient is strong enough. 2. Status post pacemaker/automated implantable cardioverter-defibrillator noted. 3. Pulmonary edema secondary to congestive heart failure. Ejection fraction of 20% with global hypokinesis on echocardiogram noted. The patient does not look congested anymore. 4. Pulmonary edema with pulmonary artery systolic pressure of 50 to 55 mmHg. 5. Nonocclusive left cephalic vein thrombosis noted on Doppler ultrasound. 6. 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 The lesions looking a lot better. 7. Generalized weakness and deconditioning. Physical therapy is on board. SUMMARY: In general, Mr. Lundberg has been in the hospital for the past 14 days, presented initially extremely sick, septic, hypotensive, and febrile. Blood cultures came back positive for Streptococcus pasteurianus. Subsequent blood cultures have been negative. Mr. Lundberg has been fairly stable. However, he remains remarkably pancytopenic and more profoundly thrombocytopenic and leukopenic. Platelet count has progressively gotten better. However, his WBC still remains low. I spoke with Dr. Alonso this morning, and she thinks that Mr. Lundberg's numbers will continue to be low and that if he remains afebrile, then he can probably be discharged on home IV antibiotics as recommended by ID. Unfortunately, Mr. Lundberg is remarkably weak, and I think he is going to be needing rehab. I discussed this with him and with the family. The family seems to be interested in him going to rehab. We will see what the social work arrangements will be in the coming days and hopefully get him to a rehab or if that fails then he can go home with home health. cc: Fletcher Hendricks MD
--- NOTE | 2019-09-05 18:57 | HEMO/ONC PROGRESS NOTE ---
DATE: 09/05/2019 CHIEF COMPLAIN: He feels sleepy. HPI: Mr. Lundberg continues to have decreased appetite and sleepiness. He has not been able to work with physical therapy over the weekend because he was groggy whenever they came in. He has requested to sit up in a chair today and is awaiting some assistance to get into the chair. He, otherwise, is asking to go home. PHYSICAL EXAMINATION: Vital signs: Temperature 97.4, pulse 87, respiratory rate 18, blood pressure 131/98, O2 saturation 100% on 2.5 L nasal cannula. He has been afebrile since admission. General: This is a chronically ill-appearing elderly man in no acute distress. He has his and daughter at the bedside. Eyes: Sclerae anicteric. Conjunctivae pale. Cardiovascular: Regular rate and rhythm. Normal S1, S2. No murmurs, rubs, or gallops. Pulmonary: Coarse bilateral breath sounds without wheezes, rales, or rhonchi. Abdomen: Soft, nontender, nondistended with normoactive bowel sounds. ENT: Right lower lip with crusted lesion that is drying up. The rest of the examination is normal. LABS: White count 0.64 with an ANC of 170, hemoglobin 7.6, platelet count 45,000. ASSESSMENT AND PLAN: 1. Neutropenic fever: Resolved. He has no evidence of recurrent neutropenic fever. He does have persistent neutropenia, which is unlikely to improve given his underlying myelodysplastic syndrome and prior treatment. 2. Anemia: Transfuse as needed. 3. Thrombocytopenia: Disease was treated. Bleeding precautions discussed. Treat as indicated based on platelet count and bleeding. 4. Streptococcus bacteremia: Management per Dr. Elizalde. At this point, he is recommending extended therapy on Rocephin at this time. 5. Deconditioning: I have encouraged the patient to participate with physical therapy. I discussed with the family rehab versus discharge home with home health. At this point, I am not sure that he is able to be discharged home with home health given his debilitation. Work with physical therapy as above. cc: Tameka Carpenter MD
[2019-09-05] MEDS: REMERON PO SCH (20:57)
[2019-09-05] MEDS: PROTONIX IV SCH (20:57)
[2019-09-06] MEDS: CARDIZEM PO SCH ×4 (02:21→20:34)
[2019-09-06 08:43] LABS: BASO# 0.01 X1000 (0.0-0.2); BASO% 1.4 % (0.0-0.8); EOS# 0.02 X1000 (0.0-0.7); EOS% 2.7 % (0.0-10.0); HEMATOCRIT 23.6 % (42.0-52.0); HEMOGLOBIN 7.3 g/dL (14.0-18.0); LYMPH# 0.35 X1000 (1.2-3.4); LYMPH% 47.9 % (20.5-51.1); MCH 31.3 PG (27-31); MCHC 30.9 g/dL (33-37); MCV 101.3 FL (81-99); MONO# 0.04 X1000 (0.11-0.59); MONO% 5.5 % (1.7-9.3); MPV 12.7 FL (7.4-10.4); NEUT# 0.31 X1000 (1.4-6.5); NEUT% 42.5 % (42.2-75.2); PLT 50 X1000 (130-400); RBC 2.33 XMIL (4.7-6.1); RDW 20.5 % (11.5-14.5); WBC 0.73 X1000 (4.8-10.8)
[2019-09-06 09:58] LABS: BANDS 30 % (0-1); LYMPHS 40 % (21-51); SEGS 20 % (42-75)
[2019-09-06 09:59] LABS: ANISOCYTOSIS 1+; HYPOCHROM 1+; POIKILOCYTOSIS 1+; SCHISTOCYTES OCCASIONAL
[2019-09-06] MEDS: MYCOSTATIN SUSP PO SCH ×4 (10:45→20:34)
[2019-09-06] MEDS: GRANIX SUBQ SCH (10:45)
[2019-09-06] MEDS: VALTREX PO SCH ×2 (10:46→20:34)
--- NOTE | 2019-09-06 11:01 | INFECTIOUS DISEASE PROGRESS NO ---
DATE: 09/06/2019 PRESENT ILLNESS: The patient has a streptococcal bacteremia which originated from his Port-A- Cath. He also has oral candidiasis which has cleared. On the patient's lower lip, he has a crusted lesion which I think is due to herpes simplex virus. The patient has myelodysplastic syndrome with an associated pancytopenia. MEDICATIONS: The patient is on Rocephin with day 1 being the first day that the repeat blood cultures were negative. The patient has been on nystatin for oral candidiasis and the patient was getting Valtrex for presumed herpes simplex lesion on the lower lip. PHYSICAL EXAMINATION: Vital Signs: Temperature is 97.6 degrees, pulse 90, respirations 21, blood pressure is 105/49. General: This is a chronically ill-appearing, elderly male. He is more alert today. He can move his extremities and he can feed himself. There is no tremor. Head/eyes/ears/nose/throat: He can hear my spoken words and see near objects. He has a crusted lesion on the lower lip. I did not see any white coating of his tongue or vesicular lesions in the mouth. Cardiovascular: Heart rate is irregular. Thorax: The patient has a combination defibrillator/pacemaker on the left side. The site is not erythematous or swollen. He also has a Port-A-Cath on the right side. That area also is not erythematous or swollen. Abdomen: Soft and nontender. Neurologic: The patient is more alert today. He was able to carry on a coherent conversation. He can move his extremities. LAB AND X-RAY: CBC today shows a white count of 730, hemoglobin 7.3, platelet count 50,000. Creatinine is 1. GFR is greater than 60. ASSESSMENT AND PLAN: The patient has streptococcal bacteremia which I think originated from his Port-A-Cath. I am going to treat him for a total of 6 weeks with intravenous Rocephin in order to hopefully sterilize the Port-A-Cath and also to treat any of the organisms that may have involved the defibrillator/pacemaker and also the metal in his arms. Following the 6 week treatment, I plan on putting the patient on Pen-VK 500 mg p.o. every 12 hours on an indefinite basis. The patient is going to be going to a rehab facility and I have ordered for Rocephin and lab work to be done for a total of 5 weeks. If the patient is discharged before he has completed his 5 weeks of Rocephin, I have put in a consult for [facility] to pick the patient up and supply the Rocephin at home to complete the 6-week treatment course. I have requested that the patient come to my office in 3 weeks. COMORBIDITIES: The patient is elderly. He has myelodysplastic syndrome with an associated pancytopenia. cc: Manish Elizalde MD
--- NOTE | 2019-09-06 12:32 | PROGRESS NOTE ---
DATE: 09/06/2019 HISTORY: Mr. Lundberg is pretty lethargic and sleepy. They are talking about going to [facility] today. His daughter was there. She was unsure if he was ready today. I think the family was going to check out the room. OBJECTIVE: Vital Signs: Temperature 98.1 degrees, pulse 72, respirations 20, blood pressure 151/58. HEENT: Pupils are equal and round. Lungs: Clear in all lung aguirre. Cardiovascular: Regular rate without murmur or S3. LABORATORY DATA: Yesterday, white count was 730, hematocrit is 23, hemoglobin 7.3, platelet count 50,000. ASSESSMENT AND PLAN: 1. The counts have been about as good as we could have been able to expect. Wanted to talk over with the family whether they were ready to go today. 2. Reviewed the orders. Remeron 15 mg at bedtime, Cardizem 30 mg p.o. q.6 hours, Protonix 40 mg IV q.24 hours, ceftriaxone 2 g IV q.24 hours. Granix 480 mcg subcutaneously daily and Valtrex 500 mg p.o. b.i.d. 3. The patient has a streptococcal bacteremia which originated from Port-A-Cath. He also had oral candidiasis which cleared. On the lower lip, he has crusted lesion which is due to herpes simplex virus. The patient has myelodysplastic syndrome with associated pancytopenia. 4. Presented with septic shock on presentation, acute kidney injury, and these have improved. 5. General weakness and deconditioning have improved a little bit. 6. 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 The patient follows up with Dr. Carpenter and he has had a 1st cycle of Dacogen 2 weeks prior to this hospitalization. He is status post pacemaker automated implanted cardio defibrillator placement. He does have known left ventricular systolic dysfunction with ejection fraction 20%, global hypokinesis on echocardiogram, and so we had to watch his volume status. 7. They are eligible and there is a room in [facility] and want to make sure the family is in agreement with this and see if we can get this set up. I think his counts are as good as they ever have been and so should be ready go in the next day or 2. cc: Jose C Bates MD
[2019-09-06] MEDS: ROCEPHIN 2 GM in NS 50 ML IV SCH (15:38)
--- NOTE | 2019-09-06 15:40 | DISCHARGE SUMMARY ---
ADMISSION DATE: 08/22/2019 DISCHARGE DATE: ADDENDUM REPORT: Going through Dr. Elizalde' notes, he wants to keep him on 6 weeks total of IV Rocephin 2 grams IV every 24 hours, so I will not put him on Levaquin, but keep him, he has a port, and use the port for IV Rocephin every 24 hours 2 grams. cc: Jose C Bates MD
--- NOTE | 2019-09-06 16:02 | DISCHARGE SUMMARY ---
ADMISSION DATE: 08/22/2019 DISCHARGE DATE: HISTORY: Mr. Lundberg was admitted on 08/22/2019. He is a patient of Dr. Jennifer Rueda and followed by Dr. Carpenter for myelodysplastic syndrome. This is an 89-year-old male who presented to [facility] on 08/22/2019 after he was seen by the oncologist's office and had some labs drawn. While he was getting his laboratories, he almost passed out. He was very pale, so he was sent to the emergency room for evaluation. Noted to have a history of myelodysplastic syndrome and was started on Decagen 2 weeks ago. He had his first course last dose and had just become progressively weaker. Workup showed white blood cell count was 370, hemoglobin was 5.3, hematocrit 17.5, platelet count is 9000. BUN 69, creatinine 2.2. PAST MEDICAL HISTORY: Includes hypertension, gastroesophageal reflux disease, hyperlipidemia, myelodysplastic syndrome, atrial fibrillation, he has congestive heart failure with diminished ejection fraction, and dilated cardiomyopathy. PAST SURGICAL HISTORY: He has had a defibrillator placed, aortic aneurysm repair in 2009, and subclavian central venous line replacement. HOSPITAL COURSE: The patient was admitted to the hospital and he was transfused as needed red blood cells and platelets. His white blood cell count did come up a little bit. He was followed by Dr. Carpenter, Hematology. He has myelodysplastic syndrome. Received 1 cycle of Decagen and treatment currently on hold until a little better. Pancytopenia secondary to myelodysplastic syndrome. I think he received 6 units of red blood cells. There was question whether he presented with sepsis. They put him on antibiotics. He had some acute kidney injury with creatinine of 1.7. This seemed to improve. He did have significant thrombocytopenia, so we gave him platelets whenever platelet count would go below 10,000. We did have to watch for fluid overload and give him some Lasix. Blood counts seemed to come up, in particular his platelet counts, and seemed to progress. His neutropenic fever resolved. He does have a persistent neutropenia which is unlikely to improve given his underlying myelodysplastic syndrome. Regarding anemia, we will continue to transfuse as needed. Regarding thrombocytopenia, his platelet count was above 40,000. He had a history of Streptococcus bacteremia followed by Dr. Elizalde and extended chemotherapy with Rocephin at this time. He also had deconditioning and weakness. Dr. Elizalde put him on Rocephin. The first day the repeat blood cultures were negative. He has been on nystatin for oral candidiasis. The patient was getting Valtrex for presumed herpes simplex on the lower lip. The family would like to take him to [facility]. He had no growth in his blood cultures from the and no growth from the , but he had 1 of 2 that showed strep organism and it was sensitive to ceftriaxone, but also sensitive to Levaquin. He is not allergic to Levaquin. Family would like to get him to rehabilitation, so I will put him on p.o. Levaquin. DISCHARGE MEDICATION: He will take Tylenol as needed, Cardizem 30 mg p.o. q. 6 hours, Remeron 50 mg at bedtime, Mycostatin suspension 5 mL 4 times a day, Protonix 40 mg p.o. q. day, Granix 480 mcg sub-Q q. day, and Valtrex 500 mg p.o. b.i.d. Let us see if we can get him set up to go to [facility]. cc: Jose C Bates MD
[2019-09-06] MEDS: REMERON PO SCH (20:34)
[2019-09-06] MEDS: PROTONIX IV SCH (20:34)
[2019-09-07] MEDS: CARDIZEM PO SCH ×4 (02:35→20:29)
[2019-09-07 07:59] LABS: BASO# 0.02 X1000 (0.0-0.2); BASO% 2.1 % (0.0-0.8); EOS# 0.02 X1000 (0.0-0.7); EOS% 2.1 % (0.0-10.0); HEMATOCRIT 23.1 % (42.0-52.0); LYMPH# 0.38 X1000 (1.2-3.4); LYMPH% 39.2 % (20.5-51.1); MCHC 30.3 g/dL (33-37); MCV 99.1 FL (81-99); MONO# 0.03 X1000 (0.11-0.59); MONO% 3.1 % (1.7-9.3); MPV 11.4 FL (7.4-10.4); NEUT# 0.52 X1000 (1.4-6.5); NEUT% 53.5 % (42.2-75.2); PLT 68 X1000 (130-400); RBC 2.33 XMIL (4.7-6.1); RDW 20.9 % (11.5-14.5); WBC 0.97 X1000 (4.8-10.8)
[2019-09-07 08:50] LABS: ANISOCYTOSIS OCCASIONAL; LYMPHS 52 % (21-51); SEGS 48 % (42-75)
--- NOTE | 2019-09-07 10:47 | PROGRESS NOTE ---
DATE: 09/07/2019 SUBJECTIVE: Mr. Lundberg is feeling better today. He has got a little more energy, slept good last night, remains afebrile. OBJECTIVE: Vital Signs: Temperature 97.7 degrees, pulse 98, respirations 16, blood pressure 112/53. Eyes: Pupils are equal and round. Lungs: Clear in all lung aguirre. Cardiovascular exam: Regular rhythm and rate without murmur or S3. Abdomen: Soft. Skin: Skin is warm and dry. : Urine output is 1400 mL. ASSESSMENT AND PLAN: Pancytopenia, underlying myelodysplastic syndrome. White count is actually not higher than it has been 970, hemoglobin 7, hematocrit 23. His platelet count is 68,000. He is feeling better overall. Volume status looks good. We are hoping to get to [facility]. I think we need to get some things set up for that. He is still on ceftriaxone 2 grams intravenous every 24 hours, which we are going to continue. He is on Granix which is 480 mcg subcutaneously daily and Valtrex 50 mg oral twice daily. His lip seems to be healing and his appetite is still pretty poor. He is on Cardizem 30 mg every 6 hours; I think his rate is pretty well controlled, hemodynamically looks good. cc: Jose C Bates MD
[2019-09-07] MEDS: GRANIX SUBQ SCH (10:54)
[2019-09-07] MEDS: VALTREX PO SCH ×2 (10:54→20:29)
[2019-09-07] MEDS: MYCOSTATIN SUSP PO SCH ×4 (10:55→20:28)
[2019-09-07] MEDS: ROCEPHIN 2 GM in NS 50 ML IV SCH (14:25)
--- NOTE | 2019-09-07 16:20 | INFECTIOUS DISEASE PROGRESS NO ---
DATE: 09/07/2019 PRESENT ILLNESS: The patient has a streptococcal bacteremia which originated from his Port-A- Cath. He also has oral candidiasis which has cleared and on his lower lip, he has a crusted lesion which was due to herpes simplex virus. The patient also has myelodysplastic syndrome with an associated pancytopenia. MEDICATIONS: The patient is on Rocephin. This is day 9 of treatment with Rocephin, with day 1 being the first day that the repeat blood cultures are sterile. The patient is receiving nystatin for his oral candidiasis and the patient is in the 4th day of receiving Valtrex for the patient's lip herpes simplex virus infection. PHYSICAL EXAMINATION: Vital Signs: Temperature is 98.4 degrees, pulse 97, respirations 16, blood pressure is 139/96. General: This is a chronically ill-appearing, elderly male. He is very lethargic today. Head, Eyes, Ears, Nose, and Throat: He does not have any drainage from his nose or the ears. He had a crusted lesion on his lower lip. Neck: No pain with passive movement. Lungs: Clear to auscultation. Cardiovascular: Heart rate is irregular. Thorax: The patient has combination defibrillator/pacemaker, the pacemaker on the left side, and a Port-A-Cath on the right side. Both the defibrillator and the Port-A-Cath sites are not swollen or erythematous. Abdomen: Soft and nontender. Neurologic: The patient is very lethargic today. He does not have a tremor. LAB AND X-RAY: CBC shows a white count of 970, hemoglobin 7, platelet count 68,000. There is no further lab and there is no radiographic study for today. ASSESSMENT AND PLAN: The patient has streptococcal bacteremia which I think originated from his Port-A-Cath. I am going to treat for 6 weeks with intravenous Rocephin in order to hopefully sterilize the Port-A-Cath and the combination defibrillator/pacemaker in case they got infected while the patient was bacteremic. Following the 6 week treatment period, I will be putting the patient on Pen-VK 500 mg by mouth every 12 hours on an indefinite basis to hopefully prevent any flare-up if there is any remaining infection. The patient is going to be going to a rehab facility. If the patient's complete intravenous Rocephin is not finished there, then, when the patient is discharged, [facility] is going to take over supplying the patient's Rocephin to complete a 6 week treatment course. I have requested for the patient to have an appointment in my office in 3 weeks. COMORBIDITIES: The patient is elderly. He has a myelodysplastic syndrome with an associated pancytopenia. cc: Manish Elizalde MD
[2019-09-07] MEDS: PROTONIX IV SCH (20:28)
[2019-09-07] MEDS: REMERON PO SCH (20:29)
[2019-09-08] MEDS: CARDIZEM PO SCH ×3 (04:20→14:43)
[2019-09-08 09:15] LABS: BASO# 0.02 X1000 (0.0-0.2); BASO% 1.6 % (0.0-0.8); EOS# 0.01 X1000 (0.0-0.7); EOS% 0.8 % (0.0-10.0); HEMATOCRIT 23.3 % (42.0-52.0); HEMOGLOBIN 6.9 g/dL (14.0-18.0); IMM GRAN# 0.16 X1000 (0.0-0.04); IMM GRAN% 12.8 % (0.0-0.5); LYMPH# 0.39 X1000 (1.2-3.4); LYMPH% 31.2 % (20.5-51.1); MCH 29.6 PG (27-31); MCHC 29.6 g/dL (33-37); MONO# 0.07 X1000 (0.11-0.59); MONO% 5.6 % (1.7-9.3); PLT 82 X1000 (130-400); RBC 2.33 XMIL (4.7-6.1); RDW 21.5 % (11.5-14.5); WBC 1.25 X1000 (4.8-10.8)
--- NOTE | 2019-09-08 09:21 | PROGRESS NOTE ---
DATE: 09/08/2019 Mr. Lundberg is sleeping, resting comfortably, had a pretty good night. OBJECTIVE: Temperature 97.5 degrees, pulse 82, respirations 12, blood pressure 124/68.HEENT: Pupils are equal and round. Lungs: Clear in all lung aguirre. Cardiovascular: Regular rhythm and rate without murmur or S3. Abdomen: Soft. Skin: Warm and dry. Reviewed blood counts from yesterday, white count was 970, hematocrit is 23, hemoglobin is 7, platelet count 68,000. ASSESSMENT AND PLAN: Streptococcal bacteremia originated from Port-A-Cath. Also had candidiasis which is cleared, lower lip crusted lesions due to herpes simplex virus. He has underlying myelodysplastic syndrome. We are trying to get him set up to go to [facility]. This is day 10 of his Rocephin being the first day when cultures were negative or sterile. Receiving nystatin and Valtrex. See if we can get him set up to go to [facility]. Followed by Dr. Carpenter. cc: Jose C Bates MD
[2019-09-08 09:34] LABS: BANDS 16 % (0-1); LYMPHS 28 % (21-51); SEGS 56 % (42-75)
[2019-09-08 09:36] LABS: ANISOCYTOSIS 1+; HYPOCHROM 1+; POIKILOCYTOSIS 1+
[2019-09-08 09:42] LABS: AGAP 9; BUN 16 mg/dL (8-22); CALCIUM 7.7 mg/dL (8.8-10.2); CHLORIDE 97 mmol/L (98-107); COSMO 279; CREATININE 1.1 mg/dL (0.7-1.2); ESTIMATED GFR > 60; GLUCOSE 175 mg/dL (70-104); POTASSIUM 3.9 mmol/L (3.5-5.1); SODIUM 137 mmol/L (136-145); TCO2 31 mmol/L (25-35)
[2019-09-08] MEDS: GRANIX SUBQ SCH (11:09)
[2019-09-08] MEDS: MYCOSTATIN SUSP PO SCH ×3 (11:09→17:09)
[2019-09-08] MEDS: VALTREX PO SCH (11:09)
[2019-09-08] MEDS ORDERED: SOLU-MEDROL IV ONE (12:33)
[2019-09-08] MEDS: ROCEPHIN 2 GM in NS 50 ML IV SCH (14:44)
--- NOTE | 2019-09-08 16:28 | DISCHARGE SUMMARY ---
ADMISSION DATE: 08/22/2019 DISCHARGE DATE: ADDENDUM REPORT: The patient basically came in with pancytopenia. He has underlying myelodysplastic syndrome. It felt like he had infection going on and Dr. Elizalde was following. We felt that he had streptococcal bacteremia originating from Port-A-Cath and had oral candidiasis that cleared, and on his upper lip he had a crusted lesion which was consistent with herpes simplex virus. His counts did come up. He was given Granulex every day. Counts came up to white count was 1250, hematocrit was 23, hemoglobin 6.9. We did give him 1 more unit of packed red blood cells the day of discharge on 09/08/2019. Platelet count was up to 82,000, so very encouraging. DISCHARGE MEDICATIONS: He will be discharged, this is day 10 of treatment with Rocephin with day 1 being the first day of repeat blood cultures. The patient receiving nystatin for oral candidiasis, and this is the 5th day of treatment for Valtrex for patient's herpes simplex. His medications on discharge, he can have Tylenol p.r.n. He is getting Cardizem 30 mg p.o. every 6 hours, Remeron 15 mg every night at bedtime, and Valtrex 500 mg b.i.d. We will also have him on Protonix by mouth 40 mg p.o. daily. He will get his ceftriaxone 2 grams IV every 24 hours, and I believe continue his Rocephin, treat for 6 weeks total. He has had 10 days, and hopefully this will sterilize the Port-A-Cath in combination with his defibrillator pacemaker. Following the 6- week treatment period, we are putting the patient on penicillin VK 500 by mouth every 12 hours for an indefinite basis, hopefully to prevent any flare-up. cc: Jose C Bates MD
[2019-09-08] MEDS ORDERED: NS 500 ML ONE (17:07)
[2019-09-08 19:03] VITALS: BP 151/64
--- NOTE | 2019-09-08 19:35 | HEMO/ONC PROGRESS NOTE ---
DATE: 09/08/2019 SUBJECTIVE: Mr. Lundberg is resting comfortably in his bed. He is in no acute distress. OBJECTIVE: Vital signs: Temperature 97.8 degrees, heart rate 75, respirations 18, blood pressure 133/82, O2 saturation 100% on 2 L nasal cannula. CV: S1, S2 heard. No murmurs, gallops or rubs appreciated.Respiratory: Chest is clear. Gastrointestinal: Abdomen is soft, nontender, nondistended with normoactive bowel sounds. Extremities: He has some trace pedal edema. LABORATORY DATA: White blood cells today are 1.25, hemoglobin 6.9, platelet count 82,000. Granulocyte count is 600. ASSESSMENT AND PLAN: 1. Myelodysplastic syndrome, status post 1 cycle of Dacogen. Treatment is on hold. The plan is for the patient to go to rehabilitation, and he will not be receiving any Dacogen while he is there. He will follow up with us in the office and we will assess his readiness to continue with further treatment at that time. 2. Pancytopenia, secondary to both treatment as well as underlying disease. Continue supportive care. We are going to go ahead and give him a unit of packed red blood cells, as he is pending discharge. His platelet count looks excellent at 82,000. His ANC is 600 and is likely not to get any better. Discontinue Granix. The patient does not need to continue Granix unless he were to fall acutely ill again, and in that case be readmitted to the hospital. He does not need Granix outside the hospital. 3. Streptococcal bacteremia, believed to originate from his port. He is receiving intravenous antibiotics per Dr. Elizalde and his team. Herpes simplex virus. Again, he will continue his current medications per Dr. Elizalde. 4. Disposition: The patient is going to go to rehabilitation. He will just follow up with us once he is discharged from rehabilitation for further treatment planning. He needs to continue all intravenous antibiotics and all other recommendations as per Dr. Elizalde for his infection. He also will need to continue to have supportive care until he can come back to our office to potentially resume treatment. Dictated by CURT Christopher for Tameka Carpenter MD cc: Tameka Carpenter MD I have seen and examined the patient. The above note reflects my history, physical exam, assessment and plan Tameka FLOYD
== END 2019-09-08 19:27 | DRG 314 ==
LOC: SUPCPDRO → ED 09:57 → ICU 16:50 → SUATTDRO 16:50 → 3N 08-30 12:49
PROVIDERS: ATTEND Emergency Medicine